=== PATIENT | female | born 1980 | race Caucasian/White ===

== ENCOUNTER 2018-11-23 20:06 | Emergency (ER) | payer OTHER ==
[2018-11-23 20:22] VITALS: BP 142/82; PULSE 86; RESP 18; TEMP 98.7
[2018-11-23] MEDS ORDERED: KETOROLAC 30 MG/ML 1 ML VIAL IM STA (20:48)
[2018-11-23] MEDS ORDERED: LIDOCAINE 5% PATCH TOPICAL STA (20:49)
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
[2018-11-23] MEDS ORDERED: ACET/COD 300 MG/30 MG STARTER PACK 6 TAB BTL PO STA (21:43)
[2018-11-23] MEDS ORDERED: CYCLOBENZAPRINE 10MG STARTER 3 TAB BTL PO STA (21:43)
== END 2018-11-23 21:59 | disposition home or self-care (01) ==
LOC: EC 20:06
DX: M54.5 Low back pain (principal); F17.200 Nicotine dependence, unspecified, uncomplicated; Z86.14 Personal history of Methicillin resistant Staphylococcus aureus infection; Z88.1 Allergy status to other antibiotic agents; V89.2XXA Person injured in unspecified motor-vehicle accident, traffic, initial encounter; Y92.89 Other specified places as the place of occurrence of the external cause
CPT/HCPCS: 72131; 99284; 96372; J1885

== ENCOUNTER 2019-01-31 18:56 | Emergency (ER) | payer BC, OTHER ==
[2019-01-31 19:07] VITALS: RESP 18
[2019-01-31] MEDS ORDERED: SULFAMETHOX-TMP 800-160MG 1 EACH TAB PO STA (19:26)
[2019-01-31] MEDS ORDERED: SULFAMETH-TMP DS STARTER PACK 2 TAB BTL PO STA (19:26)
--- NOTE | 2019-01-31 19:39 | ED ---
General Adult HPI - General Chief complaint: Skin/Abscess/Foreign Body Stated complaint: Finger infection Time Seen by Provider: 01/31/19 19:22 Source: patient, RN notes reviewed, old records reviewed Mode of arrival: ambulatory Limitations: no limitations - History of Present Illness Initial comments: 38 old female patient past history of diabetes. See chief complaint of right thumb paronychia. Patient works as been ongoing for approximately 3 weeks. Patient reports that he did attempt to drain it 2 times last 2 days with a needle. Patient reports that she was unable to express any pus out of it. Patient for she has some pain going to the base of her thumb. Denies any other complaints. Denies asplenia or HIV. Denies any chance of being . Systemic: Pt denies fatigue, fever/chills, rash. Pt denies weakness, night sweats, weight loss. Neuro: Pt denies headache, visual disturbances, syncope or pre-syncope. HEENT: Pt denies ocular discharge or irritation, otalgia, rhinorrhea, pharyngitis or notable lymphadenopathy. Cardiopulmonary: Pt denies chest pain, SOB, heart palpitations, dyspnea on exertion. Abdominal/GI: Pt denies abdominal pain, n/v/d. : Pt denies dysuria, burning w/ urination, frequency/urgency. Denies new onset urinary or bowel incontinence. MSK: Pt denies myalgia, loss of strength or function in extremities. Neuro: Pt denies new onset weakness, paresthesias. - Related Data Previous Rx's Medication Instructions Recorded Cyclobenzaprine [Flexeril] 5 mg PO TID PRN #15 tablet 11/23/18 Sulfamethox-Tmp 800-160Mg [Bactrim 1 tab PO Q12HR 7 Days #14 tab 01/31/19 DS 800-160 mg] Allergies Allergy/AdvReac Type Severity Reaction Status Date / Time azithromycin Allergy Rash/Hives Verified 01/31/19 19:07 Review of Systems ROS Statement: Those systems with pertinent positive or pertinent negative responses have been documented in the HPI. ROS Other: All systems not noted in ROS Statement are negative. Past Medical History Past Medical History: Diabetes Mellitus History of Any Multi-Drug Resistant Organisms: MRSA Date of last positivie culture/infection: 2008 MDRO Source:: face Past Surgical History: Hysterectomy, Tonsillectomy Past Psychological History: Anxiety, Depression Smoking Status: Former smoker Past Alcohol Use History: None Reported Past Drug Use History: Marijuana General Exam - General Exam Comments Initial Comments: Constitutional: NAD, AOX3, Pt has pleasant affect. HEENT: NC/AT, trachea midline, neck supple, no lymphadenopathy. Posterior pharynx non erythematous, without exudates. External ears appear normal, without discharge. Mucous membranes moist. Eyes PERRLA, EOM intact. There is no scleral icterus. No pallor noted. Cardiopulmonary: RRR, no murmurs, rubs or gallops, no JVD noted. Lungs CTAB in anterior and posterior william. No peripheral edema. Abdominal exam: Abdomen soft and non-distended. Abdomen non-tender to palpation in all 4 quadrants. Bowel sounds active in LLQ. No hepatosplenomegaly. No ecchymosis Neuro: CN II-XII grossly intact. No nuchal rigidity. No raccon eyes, no pollock sign, no hemotympanum. No cervical spinal tenderness. MSK: Paronychia right thumb region. No erythema on pad of thumb flexor area. No erythema or cellulitis extending up hand. Paronychia limited to right lateral nail bed. Incision and drainage was performed, displayed a small amount of pus. No posterior calf tenderness bilaterally, homans sign negative bilaterally. Posterior tibialis and radial pulse +2 bilaterally. Sensation intact in upper and lower extremities. Full active ROM in upper and lower extremities, 5/5 stregnth. Limitations: no limitations Course Vital Signs 01/31/19 19:04 Temperature 98.1 F Pulse Rate 78 Respiratory 18 Rate Blood Pressure 113/67 O2 Sat by Pulse 100 Oximetry Procedures - Incision & Drainage Indication: Urticaria Site: hand (R thumb) Size (cm): 1 I&D Cleaning Method: Alcohol Wipe Scalpel Used: #11 I&D Drainage Obtained: Pus, Blood Culture Obtained?: Yes Patient Tolerated Procedure: well Medical Decision Making - Medical Decision Making 38 old feel patient presented to ED chief complaint of paronychia ongoing for approximately 3 weeks. Patient vital signs are stable, afebrile. Physical exams. Paronychia, sed rate was performed. Patient doing quite a relief after drainage. Patient will be discharged with Bactrim and have close outpatient follow-up from a care provider. Return to ER if condition worsens. Disposition Clinical Impression: Paronychia Disposition: HOME SELF-CARE Condition: Stable Instructions (If sedation given, give patient instructions): Paronychia (ED), Warm Compress or Soak (ED) Additional Instructions: Follow-up with primary care provider tomorrow, return to ER physician worsens in any way. Do warm soaks as directed. Take antibiotics as directed. Prescriptions: Sulfamethox-Tmp 800-160Mg [Bactrim DS 800-160 mg] 1 tab PO Q12HR 7 Days #14 tab Is patient prescribed a controlled substance at d/c from ED?: No Referrals: Ancelmo Grier MD [Primary Care Provider] - 1-2 days
--- NOTE | 2019-01-31 19:56 | XR ---
EXAMINATION TYPE: XR hand complete RT DATE OF EXAM: 01/31/2019 COMPARISON: NONE HISTORY: Thumb pain TECHNIQUE: 3 views FINDINGS: Metacarpals are intact. I see no fracture nor dislocation. Stomach is intact. IMPRESSION: Negative right hand exam. No sign of osteomyelitis.
[2019-01-31 20:41] VITALS: BP 115/70; PULSE 75; TEMP 98
== END 2019-01-31 20:49 | disposition home or self-care (01) ==
LOC: EC 18:56
DX: L03.011 Cellulitis of right finger (principal); Z87.891 Personal history of nicotine dependence; Z88.1 Allergy status to other antibiotic agents; Z86.14 Personal history of Methicillin resistant Staphylococcus aureus infection
CPT/HCPCS: 10060; 87070; 87205; 99284

== ENCOUNTER → 2019-02-02 | Outpatient (CLI) | payer OTHER, BC ==
--- NOTE | 2019-02-02 13:55 | MR ---
EXAMINATION TYPE: MR oliver wo con DATE OF EXAM: 02/02/2019 1:49 PM COMPARISON: NONE HISTORY: Cervicalgia / Low back pain Multiplanar MultiSpin echo imaging of the cervical spine was performed. Comparison: none C2-C3: No evidence for degenerative disc disease. No disc bulge/herniation or protrusion. No Canal stenosis. Foramina are patent bilaterally. C3-C4: No evidence for degenerative disc disease. No disc bulge/herniation or protrusion. No Canal stenosis. Foramina are patent bilaterally. C4-C5: Mild disc desiccation noted. Mild posterior disc bulge. Mild effacement ventral thecal sac. No evidence of disc herniation or protrusion. No central stenosis. Foramina are patent. C5-C6: Minimal disc desiccation noted. Minimal posterior disc bulge. Mild effacement ventral thecal s ac. No evidence of disc herniation or protrusion. No central stenosis. Foramina are patent. C6-C7: No evidence for degenerative disc disease. No disc bulge/herniation or protrusion. No Canal stenosis. Foramina are patent bilaterally. C7-T1: No evidence for degenerative disc disease. No disc bulge/herniation or protrusion. No Canal stenosis. Foramina are patent bilaterally. Cervical segments are intact. There is normal alignment. Cervical spinal cord is of normal signal. Craniovertebral junction relationships are within normal limits. IMPRESSION: 1. Disc desiccation is noted. 2. Disc bulging greatest at C4-5. EXAMINATION TYPE: MR oliver wo con DATE OF EXAM: 02/02/2019 1:49 PM COMPARISON: NONE HISTORY: Cervicalgia / Low back pain Multiplanar, MultiSpin echo imaging of the lumbar spine was performed. L1-L2: Normal disc appearance without desiccation. No herniation, protrusion or disc bulging. No ca nal stenosis is present. Foramina are patent bilaterally. L2-L3: Normal disc appearance without desiccation. No herniation, protrusion or disc bulging. No ca nal stenosis is present. Foramina are patent bilaterally. L3-L4: Normal disc appearance without desiccation. No herniation, protrusion or disc bulging. No ca nal stenosis is present. Foramina are patent bilaterally. L4-L5: Normal disc appearance without desiccation. No herniation, protrusion or disc bulging. No ca nal stenosis is present. Foramina are patent bilaterally. L5-S1: Moderate disc desiccation noted. Posterior disc bulge with mild effacement of ventral thecal s ac. No evidence for central stenosis or foraminal encroachment. Lumbar segments are intact. No paraspinal masses are identified. Conus medullaris has a normal appe arance. IMPRESSION: 1. Disc desiccation and disc bulging at L5-S1.
== END | disposition home or self-care (01) ==
LOC: RADMRIMAIN 12:49
PROVIDERS: ATTEND Family Medicine
DX: M50.221 Other cervical disc displacement at C4-C5 level (principal); M51.27 Other intervertebral disc displacement, lumbosacral region
CPT/HCPCS: 72141; 72148

== ENCOUNTER 2019-03-20 17:24 | Emergency (ER) | payer BC ==
[2019-03-20 17:31] VITALS: BP 125/84; PULSE 101; RESP 20; TEMP 98.2
[2019-03-20] MEDS ORDERED: DIPH,PERTUS(ACELL)TETVAC-LF 0.5 ML VIAL IM ONE (17:40)
[2019-03-20] MEDS ORDERED: LIDOCAINE 1% INJ 10MG/ML (20 ML MDV) SQ ONE (17:41)
[2019-03-20] MEDS ORDERED: AMOXIC-POT CLAV 875-125MG 1 EACH TAB PO STA (17:41)
--- NOTE | 2019-03-20 17:45 | ED ---
General Adult HPI - General Chief complaint: Skin/Abscess/Foreign Body Stated complaint: Cat bite Time Seen by Provider: 03/20/19 17:34 Source: patient, RN notes reviewed, old records reviewed Mode of arrival: ambulatory Limitations: no limitations - History of Present Illness Initial comments: 38-year-old female presenting with Bites to the right index finger. Bite occurred 3 days prior to arrival. She's had erythema and pain which has worsened over the past 24 hours. No fever or chills. No pain in the right hand or proximal finger. This is located in the distal phalanx only. Patient has multiple cats. She is uncertain of her tetanus status. Patient is a diabetic on insulin. - Related Data Previous Rx's Medication Instructions Recorded Cyclobenzaprine [Flexeril] 5 mg PO TID PRN #15 tablet 11/23/18 Sulfamethox-Tmp 800-160Mg [Bactrim 1 tab PO Q12HR 7 Days #14 tab 01/31/19 DS 800-160 mg] Amoxic-Pot Clav 875-125Mg 1 tab PO Q12HR #20 tablet 03/20/19 [Augmentin 875-125] Allergies Allergy/AdvReac Type Severity Reaction Status Date / Time azithromycin Allergy Rash/Hives Verified 03/20/19 17:31 Review of Systems ROS Statement: Those systems with pertinent positive or pertinent negative responses have been documented in the HPI. ROS Other: All systems not noted in ROS Statement are negative. Past Medical History Past Medical History: Diabetes Mellitus History of Any Multi-Drug Resistant Organisms: MRSA Date of last positivie culture/infection: 2008 MDRO Source:: face Past Surgical History: Hysterectomy, Tonsillectomy Past Psychological History: Anxiety, Depression Smoking Status: Former smoker Past Alcohol Use History: None Reported Past Drug Use History: Marijuana General Exam Limitations: no limitations General appearance: alert, in no apparent distress Head exam: Present: atraumatic, normocephalic Eye exam: Present: normal appearance, PERRL ENT exam: Present: normal exam Neck exam: Present: normal inspection. Absent: tenderness, meningismus Respiratory exam: Present: normal lung sounds bilaterally. Absent: respiratory distress, wheezes Cardiovascular Exam: Present: regular rate, normal rhythm GI/Abdominal exam: Present: soft. Absent: distended, tenderness, guarding Extremities exam: Present: full ROM, other (Right hand, there is superficial l aceration on the palmar surface of the distal phalanx right index finger with some mild purulent drainage, this is freely draining. Mild erythema of the palmar surface. No tracking erythema, normal range of motion) Neurological exam: Present: alert, oriented X3, CN II-XII intact. Absent: motor sensory deficit Psychiatric exam: Present: normal affect, normal mood Skin exam: Present: warm Course Vital Signs 03/20/19 17:28 Temperature 98.2 F Pulse Rate 101 H Respiratory 20 Rate Blood Pressure 125/84 O2 Sat by Pulse 97 Oximetry Procedures - Nerve Block Consent Obtained: verbal consent Local Anesthetic Used: Lidocaine 1% Side: right Nerve Blocks: digital Procedure Successful: Yes Complications: none Patient Tolerated Procedure: well Additional Comments: Digital block of the right index finger. Medical Decision Making - Medical Decision Making 38 yo female with freely draining Bite infection of the right index finger distal phalanx. No signs of tenosynovitis or more proximal infection in the hand. Patient is afebrile otherwise well-appearing. X-rays performed, negative for foreign body. Tetanus status is updated. She is given a finger block for symptom control. She is given initial dose of Augmentin emergency department and prescribed Augmentin as an outpatient. She will return with any worsening or changing symptoms. Patient is a diabetic she will wash this infection very closely and is given strict return parameters. Disposition Clinical Impression: Cellulitis, Cat bite of finger Disposition: HOME SELF-CARE Condition: Good Instructions (If sedation given, give patient instructions): Animal Bite (ED) Prescriptions: Amoxic-Pot Clav 875-125Mg [Augmentin 875-125] 1 tab PO Q12HR #20 tablet Is patient prescribed a controlled substance at d/c from ED?: No Referrals: Ancelmo Grier MD [Primary Care Provider] - 1-2 days Time of Disposition: 17:45
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
== END 2019-03-20 18:27 | disposition home or self-care (01) ==
LOC: EC 17:24
DX: S61.250A Open bite of right index finger without damage to nail, initial encounter (principal); Z23 Encounter for immunization; E11.9 Type 2 diabetes mellitus without complications; Z79.4 Long term (current) use of insulin; Z88.1 Allergy status to other antibiotic agents; Z87.891 Personal history of nicotine dependence; W55.01XA Bitten by cat, initial encounter
CPT/HCPCS: 73140; 90715; 99284; 90471; 64450; J2001

== ENCOUNTER → 2019-04-04 | Outpatient (CLI) | payer BC ==
[2019-04-04 08:13] LABS: African American GFR (CKD) >90 (>60 ml/min/1.73 sqM); Blood Urea Nitrogen 17 mg/dL (7-17); Non-African American GFR(CKD) >90 (>60 ml/min/1.73 sqM)
--- NOTE | 2019-04-04 09:14 | CT ---
EXAMINATION TYPE: CT abdomen w con DATE OF EXAM: 04/04/2019 COMPARISON: None. HISTORY: Hepatomegaly CT DLP: 267.7 mGycm Automated exposure control for dose reduction was used. TECHNIQUE: Helical acquisition of images was performed from the lung bases through the top of iliac crest to include entire abdomen. CONTRAST: Performed with Oral Contrast and with IV Contrast, patient injected with 100 mL of Isovue 300. FINDINGS: LUNG BASES: No significant abnormality is appreciated. LIVER/GB: Liver size is felt upper limits of normal with slightly prominent right hepatic lobe. There is 9 mm hypodense lesion right hepatic dome axial image 11 that is too small to further characterize . There is slightly larger central 1.2 cm hypodense lesion image 13 appear to show some heterogeneous enhancement, suspect hemangioma but not definitively characterized on this study. PANCREAS: No significant abnormality is seen. SPLEEN: No significant abnormality is seen. ADRENALS: No significant abnormality is seen. KIDNEYS: No significant abnormality is seen. BOWEL: Oral contrast does not reach colonic level. No suspicious small or large bowel dilatation. LYMPH NODES: No significant abnormality is seen. OSSEOUS STRUCTURES: Small disc herniations L3-L4 through the L5-S1 levels. OTHER: None. IMPRESSION: Liver size is thought upper limits of normal. There are 2 small nonspecific lesions noted , largest 1.2 cm lesion favors benign hemangioma.
== END | disposition home or self-care (01) ==
LOC: RADCTMAIN 07:16
PROVIDERS: ATTEND Family Medicine
DX: K76.89 Other specified diseases of liver (principal)
CPT/HCPCS: 82565; 84520; 74160; 36415; Q9967

== ENCOUNTER 2019-10-20 19:58 | Inpatient (IN) | payer BC ==
[2019-10-20] MEDS ORDERED: ONDANSETRON 4 MG/2 ML VIAL IVP STA (20:35)
[2019-10-20] MEDS ORDERED: HYDROmorphone 1 MG/ML 1 ML SYRINGE IVP STA (20:35)
[2019-10-20] MEDS ORDERED: SODIUM CHLORIDE 0.9% 1,000 ML IV ONE (20:35)
[2019-10-20] MEDS ORDERED: KETOROLAC 30 MG/ML 1 ML VIAL IVP STA (20:35)
[2019-10-20 21:02] LABS: Basophils % (A) 0 %; Eosinophils # (A) 0.2 k/uL (0-0.7); Eosinophils % (A) 1 %; HCT 41.7 % (34.0-46.0); HGB 13.4 gm/dL (11.4-16.0); Lymphocytes # (A) 1.6 k/uL (1.0-4.8); Lymphocytes % (A) 13 %; MCH 32.1 pg (25.0-35.0); MCHC 32.1 g/dL (31.0-37.0); MCV 99.9 fL (80.0-100.0); Mean Platelet Volume 7.9; Monocytes # (A) 0.6 k/uL (0-1.0); Monocytes % (A) 5 %; Neutrophils # (A) 10.1 k/uL (1.3-7.7); Neutrophils % (A) 80 %; Platelet Count 289 k/uL (150-450); RBC 4.17 m/uL (3.80-5.40); RDW 12.2 % (11.5-15.5); WBC 12.6 k/uL (3.8-10.6)
[2019-10-20 21:15] LABS: AST 24 U/L (14-36); African American GFR (CKD) >90 (>60 ml/min/1.73 sqM); Albumin 4.6 g/dL (3.5-5.0); Alkaline Phosphatase 76 U/L (38-126); Anion Gap 13 mmol/L; Blood Urea Nitrogen 10 mg/dL (7-17); Calcium 9.8 mg/dL (8.4-10.2); Carbon Dioxide 26 mmol/L (22-30); Chloride 94 mmol/L (98-107); Glucose 326 mg/dL (74-99); Non-African American GFR(CKD) >90 (>60 ml/min/1.73 sqM); Potassium 3.9 mmol/L (3.5-5.1); Sodium 133 mmol/L (137-145); Total Bilirubin 0.7 mg/dL (0.2-1.3); Total Protein 7.4 g/dL (6.3-8.2)
[2019-10-20 21:22] LABS: ALT 23 U/L (4-34)
--- NOTE | 2019-10-20 21:26 | ED ---
Skin/Abscess/FB HPI - General Chief complaint: Skin/Abscess/Foreign Body Stated complaint: Abdominal Abscess/pain Time Seen by Provider: 10/20/19 20:27 Source: patient Mode of arrival: ambulatory Limitations: no limitations - History of Present Illness Initial comments: 39-year-old female patient presents to the emergency department today for evaluation of abscess to the lower abdomen. Patient states 2 days ago started as a small area she believed to be an ingrown hair. States that it increased to a golf ball size this morning and then by this evening it spread across her lower abdomen. States she has been having extreme discomfort to the area. States it is very tender to touch. She has felt feverish and chilled. Denies any nausea or vomiting. She does have type 1 diabetes. Has taken ibuprofen around 1:00 this afternoon. Denies history of MRSA or other abscesses. Patient denies any recent rash, cough, shortness of breath, chest pain, diarrhea, constipation, back pain, numbness, tingling, dizziness, weakness, hematuria, dysuria, urinary urgency, urinary frequency, headache, visual changes, or any other complaints. - Related Data Home Medications Medication Instructions Recorded Confirmed DULoxetine HCL [Cymbalta] 60 mg PO DAILY 10/20/19 10/20/19 Gabapentin 600 mg PO TID 10/20/19 10/20/19 HYDROcodone/APAP 5-325MG [Soldier 1 tab PO TID 10/20/19 10/20/19 5-325] INSULIN ASPART (NovoLOG) [NovoLOG See Protocol SQ ACHS 10/20/19 10/20/19 (formulary)] Naproxen 500 mg PO TID 10/20/19 10/20/19 Zanaflex(Unknown Dose) 1 - 2 tab PO HS 10/20/19 10/20/19 Allergies Allergy/AdvReac Type Severity Reaction Status Date / Time azithromycin Allergy Rash/Hives Verified 10/20/19 22:19 Review of Systems ROS Statement: Those systems with pertinent positive or pertinent negative responses have been documented in the HPI. ROS Other: All systems not noted in ROS Statement are negative. Past Medical History Past Medical History: Diabetes Mellitus History of Any Multi-Drug Resistant Organisms: MRSA Date of last positivie culture/infection: 2008 MDRO Source:: face Past Surgical History: Hysterectomy, Tonsillectomy Past Psychological History: Anxiety, Depression Smoking Status: Never smoker Past Alcohol Use History: None Reported Past Drug Use History: Marijuana General Exam Limitations: no limitations General appearance: alert, in no apparent distress, other (this is a well-d eveloped, well-nourished adult female patient in mild distress related to pain. ) Eye exam: Present: normal appearance, PERRL, EOMI. Absent: scleral icterus, conjunctival injection, periorbital swelling ENT exam: Present: normal exam, normal oropharynx, mucous membranes moist Respiratory exam: Present: normal lung sounds bilaterally. Absent: respiratory distress, wheezes, rales, rhonchi, stridor Cardiovascular Exam: Present: regular rate, normal rhythm, normal heart sounds. Absent: systolic murmur, diastolic murmur, rubs, gallop, clicks GI/Abdominal exam: Present: soft, normal bowel sounds, other (There is lower abdominal abscess and cellulitis. There is a large indurated area at least 12cm x 7cm. Surrounding erythema and swelling. Exquisite tenderness.). Absent: distended, tenderness, guarding, rebound, rigid Neurological exam: Present: alert, oriented X3, CN II-XII intact Psychiatric exam: Present: normal affect, normal mood Skin exam: Present: warm, dry, intact, normal color. Absent: rash Course Vital Signs 10/20/19 10/20/19 20:19 22:16 Temperature 99.4 F 97.9 F Pulse Rate 142 H 91 Respiratory 20 16 Rate Blood Pressure 102/71 98/61 O2 Sat by Pulse 98 97 Oximetry Procedures - Sepsis Sepsis Focused Exam #1 Time Sepsis Criteria Met: 21:45 Sepsis Focused Exam Date: 10/20/19 Sepsis Focused Exam Time: 22:01 Sepsis Focused Exam Complete: Yes Vital Signs & RN Notes Reviewed: Yes Capillary Refill: < 2 Seconds: Fingers, Toes Peripheral Pulses: Normal: Radial (R), Radial (L), Posterior Tibialis (R), Posterior Tibialis (L), Dorsalis Pedis (R), Dorsalis Pedis (L) Skin Color: Normal for Patient Respiratory Exam: normal lung sounds Cardiovascular Exam: tachycardia Medical Decision Making - Medical Decision Making 39-year-old female patient presents to the emergency department today for evaluation of abscess and infection to the lower abdomen. Physical examination did reveal and duration and cellulitis over the lower abdomen. Area was exquisi tely tender to touch. Patient did have mildly elevated temperature 99.5F. Heart rate was initially elevated at 147. Labs reviewed and did reveal elevated white blood cell count at 12, lactic acid 5.2, blood sugar elevated in the 320s. CT abdomen and pelvis was obtained and showed no acute abnormalities. Patient be started on IV antibiotics and admitted to the hospital for sepsis and abdominal wall cellulitis. - Lab Data Result diagrams: 10/20/19 20:29 10/20/19 20:29 Lab Results 10/20/19 10/20/19 10/20/19 Range/Units 20:29 20:29 20:29 WBC 12.6 H (3.8-10.6) k/uL RBC 4.17 (3.80-5.40) m/uL Hgb 13.4 (11.4-16.0) gm/dL Hct 41.7 (34.0-46.0) % MCV 99.9 (80.0-100.0) fL MCH 32.1 (25.0-35.0) pg MCHC 32.1 (31.0-37.0) g/dL RDW 12.2 (11.5-15.5) % Plt Count 289 (150-450) k/uL Neutrophils % 80 % Lymphocytes % 13 % Monocytes % 5 % Eosinophils % 1 % Basophils % 0 % Neutrophils # 10.1 H (1.3-7.7) k/uL Lymphocytes # 1.6 (1.0-4.8) k/uL Monocytes # 0.6 (0-1.0) k/uL Eosinophils # 0.2 (0-0.7) k/uL Basophils # 0.0 (0-0.2) k/uL Sodium 133 L (137-145) mmol/L Potassium 3.9 (3.5-5.1) mmol/L Chloride 94 L (98-107) mmol/L Carbon Dioxide 26 (22-30) mmol/L Anion Gap 13 mmol/L BUN 10 (7-17) mg/dL Creatinine 0.50 L (0.52-1.04) mg/dL Est GFR (CKD-EPI)AfAm >90 (>60 ml/min/1.73 sqM) Est GFR (CKD-EPI)NonAf >90 (>60 ml/min/1.73 sqM) Glucose 326 H (74-99) mg/dL Plasma Lactic Acid Maurizio 5.2 H* (0.7-2.0) mmol/L Calcium 9.8 (8.4-10.2) mg/dL Total Bilirubin 0.7 (0.2-1.3) mg/dL AST 24 (14-36) U/L ALT 23 (4-34) U/L Alkaline Phosphatase 76 (38-126) U/L C-Reactive Protein (<10.0) mg/L Total Protein 7.4 (6.3-8.2) g/dL Albumin 4.6 (3.5-5.0) g/dL 10/20/19 Range/Units Unknown WBC (3.8-10.6) k/uL RBC (3.80-5.40) m/uL Hgb (11.4-16.0) gm/dL Hct (34.0-46.0) % MCV (80.0-100.0) fL MCH (25.0-35.0) pg MCHC (31.0-37.0) g/dL RDW (11.5-15.5) % Plt Count (150-450) k/uL Neutrophils % % Lymphocytes % % Monocytes % % Eosinophils % % Basophils % % Neutrophils # (1.3-7.7) k/uL Lymphocytes # (1.0-4.8) k/uL Monocytes # (0-1.0) k/uL Eosinophils # (0-0.7) k/uL Basophils # (0-0.2) k/uL Sodium (137-145) mmol/L Potassium (3.5-5.1) mmol/L Chloride (98-107) mmol/L Carbon Dioxide (22-30) mmol/L Anion Gap mmol/L BUN (7-17) mg/dL Creatinine (0.52-1.04) mg/dL Est GFR (CKD-EPI)AfAm (>60 ml/min/1.73 sqM) Est GFR (CKD-EPI)NonAf (>60 ml/min/1.73 sqM) Glucose (74-99) mg/dL Plasma Lactic Acid Maurizio (0.7-2.0) mmol/L Calcium (8.4-10.2) mg/dL Total Bilirubin (0.2-1.3) mg/dL AST (14-36) U/L ALT (4-34) U/L Alkaline Phosphatase (38-126) U/L C-Reactive Protein 31.6 H (<10.0) mg/L Total Protein (6.3-8.2) g/dL Albumin (3.5-5.0) g/dL - Radiology Data Radiology results: report reviewed, image reviewed CT abdomen and pelvis with contrast was obtained. Report was reviewed in its entirety. Impression by Dr. Cao shows no sign of acute abdomen and pelvis. Appendix vaccine. Disposition Clinical Impression: Abdominal abscess, Cellulitis, Sepsis Disposition: ADMITTED IP TO THIS HOSP Condition: Serious Referrals: Ancelmo Grier MD [Primary Care Provider] - 1-2 days Decision to Admit Reason: Admit from EC Decision Date: 10/20/19 Decision Time: 22:37
[2019-10-20] MEDS ORDERED: VANCOMYCIN IV PER PHARMACY 1 EACH MISC MISCELLANE PRN (21:57)
[2019-10-20] MEDS ORDERED: VANCOMYCIN 1,250 MG in SODIUM CHLORIDE 0.9% 250 ML IVPB STA (21:58)
[2019-10-20] MEDS ORDERED: SODIUM CHLORIDE 0.9% 500 ML 500 ML IV ONE (21:58)
[2019-10-20] MEDS ORDERED: PIPERACILLIN-TAZOBACTAM 3.375 GM in SODIUM CHLORIDE 0.9% 100 ML IVPB STA (22:00)
[2019-10-20] MEDS ORDERED: INSULIN REGULAR 100 UNIT/ML VIAL IV STA (22:02)
--- NOTE | 2019-10-20 22:08 | CT ---
EXAMINATION TYPE: CT abdomen pelvis w con DATE OF EXAM: 10/20/2019 COMPARISON: 04/04/2019 HISTORY: Redness and swelling to lower abdomen CT DLP: 579.3 mGycm Automated exposure control for dose reduction was used. CONTRAST: Performed with IV Contrast, patient injected with 100 mL of Isovue 300. Lung bases are clear. There is no pleural effusion. Heart size is normal. There is no pericardial eff usion. Liver spleen stomach pancreas gallbladder appear normal. Bile ducts are not dilated. There is no adrenal mass. Kidneys show satisfactory contrast opacification. There is no hydronephrosi s. There is no retroperitoneal adenopathy. Bladder distends smoothly. There is no inguinal hernia. Th ere are a few bilateral inguinal lymph nodes. There is no evidence of a pelvic mass. There is small a mount of free fluid in the cul-de-sac. Appendix is not definitely seen. There is no sign of thickened appendix. Lumbar vertebra have normal alignment. Disc spaces are normal. Posterior elements are intact. Bony pe lvis is intact. There is 1 cm cyst in the superior liver. There is 1.5 cm hypodense area medial super ior right lobe of the liver. Liver lesions unchanged. There is hysterectomy. Delayed images show norm al renal excretion. There is subcutaneous density over the lower anterior abdomen that could be incision site. There is no mesenteric edema. There is no ascites or free air. There is no bowel obstruction. IMPRESSION: No sign of acute abdomen and pelvis. Appendix not seen.
[2019-10-20] MEDS ORDERED: NALOXONE 0.4 MG/ML 1 ML VIAL IV PRN (22:35)
[2019-10-20] MEDS: HYDROmorphone 1 MG/ML 1 ML SYRINGE IVP PRN (23:38)
[2019-10-20] MEDS: SODIUM CHLORIDE 0.9% 1,000 ML IV SCH (23:41)
[2019-10-21] MEDS: HYDROmorphone 1 MG/ML 1 ML SYRINGE IVP PRN ×7 (01:57→23:53)
[2019-10-21] MEDS: SODIUM CHLORIDE 0.9% 1,000 ML IV SCH ×3 (06:02→21:48)
[2019-10-21] MEDS: HYDROcodone/APAP 5-325MG 1 EACH TAB PO SCH ×4 (06:16→21:45)
[2019-10-21 06:33] LABS: Basophils % (A) 0 %; Eosinophils # (A) 0.1 k/uL (0-0.7); Eosinophils % (A) 1 %; HCT 33.5 % (34.0-46.0); HGB 10.7 gm/dL (11.4-16.0); Lymphocytes # (A) 0.9 k/uL (1.0-4.8); Lymphocytes % (A) 11 %; MCH 32.5 pg (25.0-35.0); MCHC 31.8 g/dL (31.0-37.0); MCV 102.1 fL (80.0-100.0); Macrocytosis Slight; Mean Platelet Volume 7.7; Monocytes # (A) 0.6 k/uL (0-1.0); Monocytes % (A) 6 %; Neutrophils % (A) 81 %; Platelet Count 234 k/uL (150-450); RBC 3.28 m/uL (3.80-5.40); RDW 12.4 % (11.5-15.5); WBC 8.7 k/uL (3.8-10.6)
[2019-10-21 06:39] LABS: African American GFR (CKD) >90 (>60 ml/min/1.73 sqM); Anion Gap 6 mmol/L; Blood Urea Nitrogen 9 mg/dL (7-17); Calcium 7.9 mg/dL (8.4-10.2); Carbon Dioxide 27 mmol/L (22-30); Chloride 102 mmol/L (98-107); Glucose 248 mg/dL (74-99); Non-African American GFR(CKD) >90 (>60 ml/min/1.73 sqM); Potassium 4.2 mmol/L (3.5-5.1); Sodium 135 mmol/L (137-145)
[2019-10-21 06:43] LABS: Glucose,Whole Blood 269 mg/dL (75-99)
[2019-10-21] MEDS: PIPERACILLIN-TAZOBACTAM 3.375 GM in SODIUM CHLORIDE 0.9% 100 ML IVPB SCH ×2 (07:13→14:33)
[2019-10-21] MEDS: DULoxetine HCL 60 MG CAPSULE.DR PO SCH (09:02)
[2019-10-21] MEDS: GABAPENTIN 300 MG CAP PO SCH ×3 (09:02→21:46)
[2019-10-21] MEDS: NAPROXEN 250 MG TAB PO SCH ×2 (09:03→20:45)
[2019-10-21] MEDS: VANCOMYCIN 1,000 MG in SODIUM CHLORIDE 0.9% 250 ML IVPB SCH ×3 (09:10→23:51)
[2019-10-21 11:34] LABS: Glucose,Whole Blood 274 mg/dL (75-99)
[2019-10-21] MEDS: INSULIN ASPART (NovoLOG) 100 UNIT/ML VIAL SQ SCH ×3 (12:53→20:46)
[2019-10-21] MEDS: ENOXAPARIN 40 MG/0.4 ML SYRINGE SQ SCH (12:54)
[2019-10-21] MEDS: ACETAMINOPHEN TAB 325 MG TAB PO PRN (13:01)
[2019-10-21] MEDS: INSULIN DETEMIR (LEVEMIR) 100 UNIT/ML SYR SQ SCH (13:45)
[2019-10-21 16:33] LABS: Glucose,Whole Blood 136 mg/dL (75-99)
--- NOTE | 2019-10-21 16:36 | P.HPIM ---
History of Present Illness H&P Date: 10/21/19 Chief Complaint: Abdominal wall cellulitis History of presenting complaint: This is a 39-year-old patient of Dr. Analia Grier. Patient is a type I diabetic diagnosed one year ago. Has a insulin pump. It was recorded. Patient has been using short-acting insulin for some time. Only Humalog. No long- acting insulin. Patient does use a razor to shave around her pubic hair. Tuesday morning she noticed a pimple just above the pubic line and an epidural local compress on it.. It progressed to spread in the lower abdomen become more painful. It no fevers. No reported chills. Normally patient Accu-Cheks run in the 250s. She was started in IV vancomycin and Zosyn in the ER. And on IV Dilaudid. Patient is asking for IV Dilaudid pain medicine to be increased. Patient is on Dewitt and Neurontin for herniated disc of the spine. Review of systems: GEN.: Tired EYES: None HEENT: None NECK: None RESPIRATORY: None CARDIOVASCULAR: None GASTROINTESTINAL: None GENITOURINARY: None MUSCULOSKELETAL: Chronic back pain LYMPHATICS: None HEMATOLOGICAL: None PSYCHIATRY: Very anxious] NEUROLOGICAL: None Past medical history to include: Diabetes mellitus type 1, MRSA infection in 2009, herniated disc in the spine, anxiety depression Social history: Patient was smoking cigarettes in the past now does vaping, is a property loss insurance claim adjuster. No alcohol. Has a son at home. Family history: Reviewed, noncontributory to presentation Physical examination: VITAL SIGNS: 98.3, 88, 17, 116/78, 95% room air GENERAL: BMI 22.1, laying in bed, restless. EYES: Pupils equal. Conjunctiva normal. HEENT: External appearance of nose and ears normal, oral cavity grossly normal. NECK: JVD not raised; masses not palpable. HEART: First and second heart sounds are normal; no edema. LUNGS: Respiratory rate normal; clear to auscultation. ABDOMEN: Soft, nontender, liver spleen not palpable, no masses palpable lower abdominal wall above the pubic hair line with surrounding area of induration. It appears to be one area folliculitis PSYCH: Alert and oriented x3; mood and affect very anxious and agitatedl. NEUROLOGICAL: Cranial nerves grossly intact; no facial asymmetry, power and sensation grossly intact. LYMPHATICS: No lymph nodes palpable in the axilla and neck INVESTIGATIONS, reviewed in the clinical context: White count 12.6 hemoglobin 13.4 repeat 10.7 potassium 3.9 creatinine 0.5 lactic acid 5.2 CRP 31.6 Accu-Cheks 269, 274 Assessment: -Acute lower abdominal wall cellulitis precipitated by acute folliculitis likely from using a razor -Diabetes mellitus type 1 on insulin pump currently using only NovoLog due to the pumping recalled, uncontrolled with hyperglycemia -Macrocytic anemia cause unknown -Lactic acidosis possible sepsis from cellulitis -Chronic low back pain from herniated disc -Anxiety depression otherwise specified Plan: Patient Dilaudid be increased 1.5 mg every 3 hours as discussed with the patient. Patient to begin vancomycin and Zosyn. Blood cultures are pending. Accu-Cheks to follow. 16 units of daily living that is being added. ID is consulted. Home medications to continue. Hold of Dewitt. Past Medical History Past Medical History: Diabetes Mellitus History of Any Multi-Drug Resistant Organisms: MRSA Date of last positivie culture/infection: 2008 MDRO Source:: face Past Surgical History: Hysterectomy, Tonsillectomy Past Anesthesia/Blood Transfusion Reactions: No Reported Reaction Past Psychological History: Anxiety, Depression Smoking Status: Never smoker Past Alcohol Use History: None Reported Past Drug Use History: Marijuana Medications and Allergies Home Medications Medication Instructions Recorded Confirmed Type DULoxetine HCL [Cymbalta] 60 mg PO DAILY 10/20/19 10/20/19 History Gabapentin 600 mg PO TID 10/20/19 10/20/19 History HYDROcodone/APAP 5-325MG [Dewitt 1 tab PO TID 10/20/19 10/20/19 History 5-325] INSULIN ASPART (NovoLOG) [NovoLOG See Protocol SQ ACHS 10/20/19 10/20/19 History (formulary)] Naproxen 500 mg PO TID 10/20/19 10/20/19 History Zanaflex(Unknown Dose) 1 - 2 tab PO HS 10/20/19 10/20/19 History Allergies Allergy/AdvReac Type Severity Reaction Status Date / Time azithromycin Allergy Rash/Hives Verified 10/20/19 22:19 Physical Exam Vitals: Vital Signs Temp Pulse Pulse Resp BP BP Pulse Ox 10/21/19 07:00 98.3 F 88 17 116/78 95 10/21/19 01:20 87 113/70 10/21/19 00:53 98.3 F 89 16 93/58 95 10/20/19 23:43 93 18 96/63 96 10/20/19 22:16 97.9 F 91 16 98/61 97 10/20/19 20:19 99.4 F 142 H 20 102/71 98 Intake and Output 10/20/19 10/21/19 10/21/19 22:59 06:59 14:59 Other: # Voids 3 Weight 53.07 kg 53.07 kg Results CBC & Chem 7: 10/21/19 06:02 10/21/19 06:02 Labs: Abnormal Lab Results - Last 24 Hours (Table) 10/20/19 10/20/19 10/20/19 Range/Units 20:29 20:29 20:29 WBC 12.6 H (3.8-10.6) k/uL RBC (3.80-5.40) m/uL Hgb (11.4-16.0) gm/dL Hct (34.0-46.0) % MCV (80.0-100.0) fL Neutrophils # 10.1 H (1.3-7.7) k/uL Lymphocytes # (1.0-4.8) k/uL Sodium 133 L (137-145) mmol/L Chloride 94 L (98-107) mmol/L Creatinine 0.50 L (0.52-1.04) mg/dL Glucose 326 H (74-99) mg/dL POC Glucose (mg/dL) (75-99) mg/dL Plasma Lactic Acid Maurizio 5.2 H* (0.7-2.0) mmol/L Calcium (8.4-10.2) mg/dL C-Reactive Protein (<10.0) mg/L 10/20/19 10/21/19 10/21/19 Range/Units Unknown 06:02 06:02 WBC (3.8-10.6) k/uL RBC 3.28 L (3.80-5.40) m/uL Hgb 10.7 L (11.4-16.0) gm/dL Hct 33.5 L (34.0-46.0) % MCV 102.1 H (80.0-100.0) fL Neutrophils # (1.3-7.7) k/uL Lymphocytes # 0.9 L (1.0-4.8) k/uL Sodium 135 L (137-145) mmol/L Chloride (98-107) mmol/L Creatinine 0.46 L (0.52-1.04) mg/dL Glucose 248 H (74-99) mg/dL POC Glucose (mg/dL) (75-99) mg/dL Plasma Lactic Acid Maurizio (0.7-2.0) mmol/L Calcium 7.9 L (8.4-10.2) mg/dL C-Reactive Protein 31.6 H (<10.0) mg/L 10/21/19 Range/Units 06:42 WBC (3.8-10.6) k/uL RBC (3.80-5.40) m/uL Hgb (11.4-16.0) gm/dL Hct (34.0-46.0) % MCV (80.0-100.0) fL Neutrophils # (1.3-7.7) k/uL Lymphocytes # (1.0-4.8) k/uL Sodium (137-145) mmol/L Chloride (98-107) mmol/L Creatinine (0.52-1.04) mg/dL Glucose (74-99) mg/dL POC Glucose (mg/dL) 269 H (75-99) mg/dL Plasma Lactic Acid Maurizio (0.7-2.0) mmol/L Calcium (8.4-10.2) mg/dL C-Reactive Protein (<10.0) mg/L Thrombosis Risk Factor Assmnt - Choose All That Apply Any of the Below Risk Factors Present?: No Other Risk Factors: No Other congenital or acquired thrombophilia - If yes, enter type in comment: No Thrombosis Risk Factor Assessment Level: Very Low Risk
[2019-10-21 20:26] LABS: Glucose,Whole Blood 181 mg/dL (75-99)
[2019-10-21] MEDS: ONDANSETRON 4 MG/2 ML VIAL IVP PRN (21:14)
--- NOTE | 2019-10-21 23:30 | P.CONS ---
History of Present Illness - Reason for Consult Consult date: 10/21/19 Abdominal wall abscess Requesting physician: Tony Farias - Chief Complaint Abdominal wall pain swelling or redness x 2 days - History of Present Illness Patient is 39-year-old female presenting to the ER with chief complaints of painful swelling and redness of the lower abdominal wall apparently started about 2 days ago with a small pimple that has subsequently increased in size very quickly with the next 48 hour she's describing is swollen and red and painful pain is throbbing almost 10 out of 10 in severity and worse with touching patient denies having any drainage from the area with worsening pain swelling redness she presented to the hospital on the Route of the elevated have low-grade fever of 99.9F patient did have CT of abdominal pelvis that did not show any intra-abdominal pathology The patient was to vancomycin and Zosyn she has been admitted to the hospital infection disease was consulted for further management of antibiotic therapy patient did give a history of MRSA right fascial abscess and cellulitis in the past and currently do not have any other site with skin soft tissue infection Review of Systems Positive point has been mentioned in the HPI rest of the systems are negative Past Medical History Past Medical History: Diabetes Mellitus History of Any Multi-Drug Resistant Organisms: MRSA Year Discovered:: 2008 MDRO Source:: face Past Surgical History: Hysterectomy, Tonsillectomy Past Anesthesia/Blood Transfusion Reactions: No Reported Reaction Past Psychological History: Anxiety, Depression Smoking Status: Never smoker Past Alcohol Use History: None Reported Past Drug Use History: Marijuana Medications and Allergies Home Medications Medication Instructions Recorded Confirmed Type DULoxetine HCL [Cymbalta] 60 mg PO DAILY 10/20/19 10/20/19 History Gabapentin 600 mg PO TID 10/20/19 10/20/19 History HYDROcodone/APAP 5-325MG [[place] 1 tab PO TID 10/20/19 10/20/19 History 5-325] INSULIN ASPART (NovoLOG) [NovoLOG See Protocol SQ ACHS 10/20/19 10/20/19 History (formulary)] Naproxen 500 mg PO TID 10/20/19 10/20/19 History Zanaflex(Unknown Dose) 1 - 2 tab PO HS 10/20/19 10/20/19 History Allergies Allergy/AdvReac Type Severity Reaction Status Date / Time azithromycin Allergy Rash/Hives Verified 10/20/19 22:19 Physical Exam Vitals: Vital Signs Temp Pulse Pulse Resp BP BP Pulse Ox 10/21/19 07:00 98.3 F 88 17 116/78 95 10/21/19 01:20 87 113/70 10/21/19 00:53 98.3 F 89 16 93/58 95 10/20/19 23:43 93 18 96/63 96 10/20/19 22:16 97.9 F 91 16 98/61 97 10/20/19 20:19 99.4 F 142 H 20 102/71 98 Intake and Output 10/21/19 10/21/19 10/21/19 06:59 14:59 22:59 Intake Total 1490 Balance 1490 Intake: IV 200 Piperacillin-Tazobactam 3 200 .375 gm In Sodium Chloride 0.9% 100 ml @ 25 mls/hr IVPB Q8H TIM Rx#: [id number] Intake, IV Titration 1290 Amount Sodium Chloride 0.9% 1, 1040 000 ml @ 130 mls/hr IV . Q7H42M TIM Rx#:[id number] Vancomycin 1,000 mg In 250 Sodium Chloride 0.9% 250 ml @ 125 mls/hr IVPB Q8H TIM Rx#:[id number] Other: # Voids 3 Weight 53.07 kg GENERAL DESCRIPTION: Middle-aged female lying in bed, no distress. No tachypnea or accessory muscle of respiration use. HEENT: Shows Pallor , no scleral icterus. Oral mucous membrane is dry. No pharyngeal erythema or thrush NECK: Trachea central, no thyromegaly. LUNGS: Unlabored breathing. Clear to auscultation anteriorly. No wheeze or crackle. HEART: S1, S2, regular rate and rhythm. No loud murmur ABDOMEN: Soft, lower abdominal wall with an area off in urination swelling and redness which is tender to touch no fluctuation or drainage EXTREMITIES: No edema of feet. SKIN: No rash, no masses palpable. NEUROLOGICAL: The patient is awake, alert, oriented x3, mood and affect normal. Results CBC & Chem 7: 10/21/19 06:02 10/21/19 06:02 Labs: Abnormal Lab Results - Last 24 Hours (Table) 10/20/19 10/20/19 10/20/19 Range/Units 20:29 20:29 20:29 WBC 12.6 H (3.8-10.6) k/uL RBC (3.80-5.40) m/uL Hgb (11.4-16.0) gm/dL Hct (34.0-46.0) % MCV (80.0-100.0) fL Neutrophils # 10.1 H (1.3-7.7) k/uL Lymphocytes # (1.0-4.8) k/uL Sodium 133 L (137-145) mmol/L Chloride 94 L (98-107) mmol/L Creatinine 0.50 L (0.52-1.04) mg/dL Glucose 326 H (74-99) mg/dL POC Glucose (mg/dL) (75-99) mg/dL Plasma Lactic Acid Maurizio 5.2 H* (0.7-2.0) mmol/L Calcium (8.4-10.2) mg/dL C-Reactive Protein (<10.0) mg/L 10/20/19 10/21/19 10/21/19 Range/Units Unknown 06:02 06:02 WBC (3.8-10.6) k/uL RBC 3.28 L (3.80-5.40) m/uL Hgb 10.7 L (11.4-16.0) gm/dL Hct 33.5 L (34.0-46.0) % MCV 102.1 H (80.0-100.0) fL Neutrophils # (1.3-7.7) k/uL Lymphocytes # 0.9 L (1.0-4.8) k/uL Sodium 135 L (137-145) mmol/L Chloride (98-107) mmol/L Creatinine 0.46 L (0.52-1.04) mg/dL Glucose 248 H (74-99) mg/dL POC Glucose (mg/dL) (75-99) mg/dL Plasma Lactic Acid Maurizio (0.7-2.0) mmol/L Calcium 7.9 L (8.4-10.2) mg/dL C-Reactive Protein 31.6 H (<10.0) mg/L 10/21/19 10/21/19 10/21/19 Range/Units 06:42 11:32 16:32 WBC (3.8-10.6) k/uL RBC (3.80-5.40) m/uL Hgb (11.4-16.0) gm/dL Hct (34.0-46.0) % MCV (80.0-100.0) fL Neutrophils # (1.3-7.7) k/uL Lymphocytes # (1.0-4.8) k/uL Sodium (137-145) mmol/L Chloride (98-107) mmol/L Creatinine (0.52-1.04) mg/dL Glucose (74-99) mg/dL POC Glucose (mg/dL) 269 H 274 H 136 H (75-99) mg/dL Plasma Lactic Acid Maurizio (0.7-2.0) mmol/L Calcium (8.4-10.2) mg/dL C-Reactive Protein (<10.0) mg/L Assessment and Plan Assessment: 1- patient presented to hospital with abdominal wall pain swelling redness that started as a pimple now with an area of cellulitis and induration or evidence of any drainable abscess likely from gram-positive skin antonino, and likely MRSA and the patient did have a previous history of MRSA infection (1) Abdominal wall cellulitis Current Visit: Yes Status: Acute Code(s): L03.311 - CELLULITIS OF ABDOMINAL WALL SNOMED Code(s): 07745116 Plan: 1- Vancomycin pharmacy to dose target trough of 15 while watching his kidney function and Vanco trough closely 2- discontinue Zosyn 3- if the area started to drain will get cultures and the patient has been advised warm compression We will follow on clinical condition and cultures to further adjust medication if needed Thank you for this consultation will follow this patient with you Time with Patient: Greater than 30
[2019-10-22] MEDS: HYDROmorphone 1 MG/ML 1 ML SYRINGE IVP PRN ×6 (03:51→22:56)
[2019-10-22] MEDS: SODIUM CHLORIDE 0.9% 1,000 ML IV SCH ×3 (04:41→21:15)
[2019-10-22] MEDS ORDERED: VANCOMYCIN TROUGH DUE 1 EACH MISC MISCELLANE ONE (07:00)
[2019-10-22 08:02] LABS: Glucose,Whole Blood 138 mg/dL (75-99)
[2019-10-22] MEDS: INSULIN ASPART (NovoLOG) 100 UNIT/ML VIAL SQ SCH ×4 (08:04→20:49)
[2019-10-22] MEDS: NAPROXEN 250 MG TAB PO SCH ×2 (08:04→21:08)
[2019-10-22] MEDS: INSULIN DETEMIR (LEVEMIR) 100 UNIT/ML SYR SQ SCH (08:04)
[2019-10-22] MEDS: DULoxetine HCL 60 MG CAPSULE.DR PO SCH (08:04)
[2019-10-22] MEDS: ENOXAPARIN 40 MG/0.4 ML SYRINGE SQ SCH (08:04)
[2019-10-22] MEDS: GABAPENTIN 300 MG CAP PO SCH ×3 (08:05→20:49)
[2019-10-22] MEDS: HYDROcodone/APAP 5-325MG 1 EACH TAB PO SCH (09:01)
[2019-10-22] MEDS: VANCOMYCIN 1,000 MG in SODIUM CHLORIDE 0.9% 250 ML IVPB SCH ×3 (09:02→21:08)
[2019-10-22] MEDS ORDERED: VANCOMYCIN IV PER PHARMACY 1 EACH MISC MISCELLANE PRN (11:33)
[2019-10-22 12:21] LABS: Glucose,Whole Blood 67 mg/dL (75-99)
[2019-10-22 12:21] LABS: Glucose,Whole Blood 66 mg/dL (75-99)
[2019-10-22 12:49] LABS: Glucose,Whole Blood 68 mg/dL (75-99)
[2019-10-22 12:53] LABS: Glucose,Whole Blood 107 mg/dL (75-99)
[2019-10-22] MEDS ORDERED: LIDOCAINE 1% INJ 10MG/ML (20 ML MDV) SQ ONE (14:53)
[2019-10-22] MEDS ORDERED: HYDROmorphone 1 MG/ML 1 ML SYRINGE IVP STA (14:56)
--- NOTE | 2019-10-22 15:16 | P.GSCN ---
History of Present Illness Consult date: 10/22/19 Reason for Consult: Abdominal wall abscess History of present illness: Is a 39-year-old female who is being treated outpatient for abdominal wall cellulitis. Patient developed inflammation and induration near her previous Pfannenstiel incision. Patient worsening redness today. She's been to the hospital for IV antibiotics. There is swelling near the midportion of her scar suggestive of an abscess. Past Medical History Past Medical History: Diabetes Mellitus History of Any Multi-Drug Resistant Organisms: MRSA Year Discovered:: 2008 MDRO Source:: face Past Surgical History: Hysterectomy, Tonsillectomy Past Anesthesia/Blood Transfusion Reactions: No Reported Reaction Past Psychological History: Anxiety, Depression Smoking Status: Never smoker Past Alcohol Use History: None Reported Past Drug Use History: Marijuana Medications and Allergies Home Medications Medication Instructions Recorded Confirmed Type DULoxetine HCL [Cymbalta] 60 mg PO DAILY 10/20/19 10/20/19 History Gabapentin 600 mg PO TID 10/20/19 10/20/19 History HYDROcodone/APAP 5-325MG [[place] 1 tab PO TID 10/20/19 10/20/19 History 5-325] INSULIN ASPART (NovoLOG) [NovoLOG See Protocol SQ ACHS 10/20/19 10/20/19 History (formulary)] Naproxen 500 mg PO TID 10/20/19 10/20/19 History tiZANidine HCL [Zanaflex] 4 mg PO TID PRN 10/22/19 10/22/19 History Allergies Allergy/AdvReac Type Severity Reaction Status Date / Time azithromycin Allergy Rash/Hives Verified 10/20/19 22:19 Surgical - Exam Vital Signs Temp Pulse Resp BP Pulse Ox 99.4 F 142 H 20 102/71 98 10/20/19 20:19 10/20/19 20:19 10/20/19 20:19 10/20/19 20:19 10/20/19 20:19 - General well developed, well nourished, no distress - Eyes PERRL - ENT normal pinna - Neck no masses - Respiratory normal expansion - Cardiovascular Rhythm: regular - Abdomen Evidence of inflammation and induration along the Pfannenstiel incision. There is a fluctuant mass in the midportion of the scar. Abdomen: soft Results - Labs 10/21/19 06:02 10/21/19 06:02 Abnormal Lab Results - Last 24 Hours (Table) 10/21/19 10/21/19 10/22/19 Range/Units 16:32 20:24 07:17 POC Glucose (mg/dL) 136 H 181 H 138 H (75-99) mg/dL 10/22/19 10/22/19 10/22/19 Range/Units 11:56 12:11 12:29 POC Glucose (mg/dL) 66 L 67 L 68 L (75-99) mg/dL 10/22/19 Range/Units 12:51 POC Glucose (mg/dL) 107 H (75-99) mg/dL Microbiology - Last 24 Hours (Table) 10/20/19 22:11 Blood Culture - Preliminary Blood No Growth after 24 hours Assessment and Plan Assessment: Subcutaneous abdominal wall abscess and sensitivity. Patient undergo incision and drainage.
--- NOTE | 2019-10-22 15:17 | P.OP ---
Date of Procedure: 10/22/19 Preoperative Diagnosis: Abdominal wall abscess Postoperative Diagnosis: Abdominal wall abscess Procedure(s) Performed: Incision and drainage abdominal wall abscess Anesthesia: local Surgeon: Edward Collins Estimated Blood Loss (ml): 2 Pathology: other (Culture) Condition: stable Description of Procedure: The patient's placed in her bed in supine position. Her abdominal wall was prepped and draped in sterile fashion. The skin was anesthetized 1% local Xylocaine. Using 11 blade the skin was incised abscess. A small amount of purulent fluid was expressed. The wound was then cultured. It was then packed with 4 x 4 gauze. Sterile dressing was applied. Patient top she will well.
[2019-10-22] MEDS: ONDANSETRON 4 MG/2 ML VIAL IVP PRN (16:20)
[2019-10-22 17:34] LABS: Glucose,Whole Blood 78 mg/dL (75-99)
[2019-10-22] MEDS: ACETAMINOPHEN TAB 325 MG TAB PO PRN (18:46)
[2019-10-22 20:40] LABS: Glucose,Whole Blood 239 mg/dL (75-99)
--- NOTE | 2019-10-22 22:11 | P.PN ---
Progress Note - Text Progress Note Date: 10/22/19 Chief Complaint: Abdominal wall cellulitis History of presenting complaint: This is a 39-year-old patient of Dr. Analia Grier. Patient is a type I diabetic diagnosed one year ago. Has a insulin pump. It was recorded. Patient has been using short-acting insulin for some time. Only Humalog. No long- acting insulin. Patient does use a razor to shave around her pubic hair. Tuesday morning she noticed a pimple just above the pubic line and an epidural local compress on it.. It progressed to spread in the lower abdomen become more painful. It no fevers. No reported chills. Normally patient Accu-Cheks run in the 250s. She was started in IV vancomycin and Zosyn in the ER. And on IV Dilaudid. Patient is asking for IV Dilaudid pain medicine to be increased. Patient is on [place] and Neurontin for herniated disc of the spine. Today-when he came to see the patient the morning, she was on the phone comfortable. patient then became rather irate because her sugars had dropped. I was trying to get more into the history of the insulin when she called up her father. I repeatedly asked her that we could talk to him trying to help her. Finally left the room and called the patient advocate Arcenio to request the patient, not to be rude. In that case him happy to come back and see her. Otherwise she has a choice of changing of position. Patient also reported by the nurse to be due to the aid and the nurse last night. Patient Dilaudid was increased to 2 mg every [address] Schmidt from ID. He consulted Dr. Collins from general surgery. Patient was taken down to the OR later. Minimal if any pus was obtained. Rather superficial. I came back to see the patient in the evening. Accu-Cheks 239. Patient does not want any change in insulin. Was to be left the just on sliding scale... She'll follow up with osteopathy doctor. I did inform her that sugars need to be better controlled in view of acute infection. Patient ate 100% of all her meals. Review of systems: Was done for constitutional, cardiovascular, GI, pulmonary. relevant finding as above Active Medications Acetaminophen (Tylenol Tab) 650 mg PO Q6HR PRN PRN Reason: Mild Pain or Fever > 100.5 Last Admin: 10/22/19 18:46 Dose: 650 mg Documented by: Duloxetine HCl (Cymbalta) 60 mg PO DAILY [facility] Last Admin: 10/22/19 08:04 Dose: 60 mg Documented by: Enoxaparin Sodium (Lovenox) 40 mg SQ DAILY [facility] Last Admin: 10/22/19 08:04 Dose: 40 mg Documented by: Gabapentin (Neurontin) 600 mg PO TID [facility] Last Admin: 10/22/19 20:49 Dose: 600 mg Documented by: Hydromorphone HCl (Dilaudid) 2 mg IVP Q4HR PRN PRN Reason: Pain Last Admin: 10/22/19 18:35 Dose: 2 mg Documented by: Sodium Chloride (Saline 0.9%) 1,000 mls @ 130 mls/hr IV .Q7H42M [facility] Last Admin: 10/22/19 21:15 Dose: Not Given Documented by: Vancomycin HCl 1,000 mg/ (Sodium Chloride) 250 mls @ 125 mls/hr IVPB Q6H [facility] Last Admin: 10/22/19 21:08 Dose: 125 mls/hr Documented by: Insulin Aspart (Novolog) 0 unit SQ ACHS [facility]; Protocol Last Admin: 10/22/19 20:49 Dose: 3 unit Documented by: Miscellaneous Information (Vancomycin Trough Due) 1 each MISCELLANE ONCE ONE Stop: 10/23/19 08:01 Naloxone HCl (Narcan) 0.2 mg IV Q2M PRN PRN Reason: Opioid Reversal Naproxen (Naprosyn) 500 mg PO BID [facility] Last Admin: 10/22/19 21:08 Dose: 500 mg Documented by: Ondansetron HCl (Zofran) 4 mg IVP Q8HR PRN PRN Reason: Nausea And Vomiting Last Admin: 10/22/19 16:20 Dose: 4 mg Documented by: Physical examination: VITAL SIGNS: 97.6, 76, 16, 105/72, 100% on room air GENERAL: Sitting up in bed EYES: Pupils equal. Conjunctiva normal. HEENT: External appearance of nose and ears normal, oral cavity grossly normal. NECK: JVD not raised; masses not palpable. HEART: First and second heart sounds are normal; no edema. LUNGS: Respiratory rate normal; clear to auscultation. ABDOMEN: Soft, superficial wound of the surgery, with some surrounding redness, liver spleen not palpable, PSYCH: Alert and oriented x3; mood and affect anxious INVESTIGATIONS, reviewed in the clinical context: Accu-Cheks 67, 68, 107, 78, 239 Previous testing White count 12.6 hemoglobin 13.4 repeat 10.7 potassium 3.9 creatinine 0.5 lactic acid 5.2 CRP 31.6 Accu-Cheks 269, 274 Assessment: -Acute lower abdominal wall cellulitis precipitated by acute folliculitis likely from using a razor. Status post I&D. -Diabetes mellitus type 1 on insulin pump currently using only NovoLog due to the pumping recalled, uncontrolled with hyperglycemia, hypoglycemia -Macrocytic anemia cause unknown -Lactic acidosis possible sepsis from cellulitis -Chronic low back pain from herniated disc -Anxiety depression otherwise specified Plan: This morning Dilaudid was increased per patient request her 2 mg every 4 hours. [place] has been held. Levemir discontinued. Continue sliding scale. Will discuss with Dr. Schmidt from ID about discharge planning tomorrow.
--- NOTE | 2019-10-22 23:28 | PN ---
PROGRESS NOTE DATE OF SERVICE: 10/22/2019 REASON FOR FOLLOWUP: Abdominal wall cellulitis. INTERVAL HISTORY: Patient was seen on rounds this morning. The patient was complaining of more pain and swelling to the abdominal wall. The patient denies having any chest pain, shortness of breath or cough. No nausea, no vomiting and no diarrhea. She has been complaining of so far pain medication. PHYSICAL EXAMINATION: Blood pressure of 114/64 with a pulse of 70, temperature 98.4. She is 99% on room air. General description is a middle-aged female lying in bed in no distress. RESPIRATORY SYSTEM: Unlabored breathing, clear to auscultation anteriorly. HEART: S1, S2. Regular rate and rhythm. ABDOMEN: Soft. Abdominal wall area of swelling and induration. No open wound or any drainage. LABS: Hemoglobin is 10.7, white count 8.7 as of yesterday. Vancomycin trough slightly low. DIAGNOSTIC IMPRESSION AND PLAN: Patient with abdominal wall cellulitis with concern for an abscess. Surgery was consulted. Did do a bedside I and D. No significant purulent material came out. The patient's vancomycin trough is low. Dose needs to be adjusted to keep the trough around 15. Area of the cellulitis has been marked and will be re-evaluate the patient tomorrow. Case was discussed in detail with the admitting physician as well as with the father on the phone. Time spent was more than 25 minutes. ADRIANNEL / DESTINYN: [id number] /
[2019-10-23] MEDS: ACETAMINOPHEN TAB 325 MG TAB PO PRN ×2 (02:28→12:18)
[2019-10-23] MEDS: HYDROmorphone 1 MG/ML 1 ML SYRINGE IVP PRN ×4 (03:08→14:20)
[2019-10-23] MEDS: VANCOMYCIN 1,000 MG in SODIUM CHLORIDE 0.9% 250 ML IVPB SCH ×2 (03:08→09:03)
[2019-10-23 05:33] LABS: Glucose,Whole Blood 280 mg/dL (75-99)
[2019-10-23] MEDS: SODIUM CHLORIDE 0.9% 1,000 ML IV SCH ×3 (05:42→18:16)
[2019-10-23 06:38] LABS: Glucose,Whole Blood 239 mg/dL (75-99)
[2019-10-23] MEDS: INSULIN ASPART (NovoLOG) 100 UNIT/ML VIAL SQ SCH ×4 (06:45→21:09)
[2019-10-23 07:21] LABS: African American GFR (CKD) >90 (>60 ml/min/1.73 sqM); Non-African American GFR(CKD) >90 (>60 ml/min/1.73 sqM)
[2019-10-23] MEDS ORDERED: VANCOMYCIN TROUGH DUE 1 EACH MISC MISCELLANE ONE (08:00)
[2019-10-23] MEDS: ENOXAPARIN 40 MG/0.4 ML SYRINGE SQ SCH (09:03)
[2019-10-23] MEDS: NAPROXEN 250 MG TAB PO SCH ×2 (09:04→21:17)
[2019-10-23] MEDS: GABAPENTIN 300 MG CAP PO SCH ×3 (09:04→21:17)
[2019-10-23] MEDS: DULoxetine HCL 60 MG CAPSULE.DR PO SCH (09:05)
[2019-10-23 11:42] LABS: Glucose,Whole Blood 225 mg/dL (75-99)
--- NOTE | 2019-10-23 11:55 | P.PN ---
Progress Note - Text Progress Note Date: 10/23/19 The patient has completed increased pain. On exam there is increased induration across her abdominal wall. There is some minimal purulent output at her incision site. Worsening sailors abdominal wall. The rectum the patient stay in the hospital continue receive IV antibiotics. There is some question that she may be discharged home today. I recommended that she stay. Revaluate tomorrow.
[2019-10-23] MEDS ORDERED: NICOTINE POLACRILEX 2 MG GUM BUCCAL PRN (13:21)
[2019-10-23] MEDS: NICOTINE 21MG/24HR PATCH TRANSDERM SCH (14:21)
[2019-10-23 14:48] LABS: Hemoglobin A1C 11.1 % (4.0-6.0)
[2019-10-23] MEDS ORDERED: NALOXONE 0.4 MG/ML 1 ML VIAL IV PRN (16:09)
--- NOTE | 2019-10-23 16:11 | P.PAINCN ---
History of Present Illness - Reason for Consult Consult date: 10/23/19 - History of Present Illness This is a 39-year-old patient referred by Dr. Farias who is an inpatient consult for abdominal pain after cellulitis of the abdomen. Patient was recently admitted with a wound on her anterior abdomen and recently had an incision and drainage. Patient has been having significant pain since the procedure. The pain is located in the lower aspect of the abdomen described as sharp stabbing and burning radiating out to the flanks. Any type of movement makes the pain worse and only rest makes the pain better. Patient is being treated for active infection is unsure when she will be going home. Patient currenly on dilaudid 2 mg Q4H IV prn, Cymbalta 60 mg QD, gabapentin 300 mg TID, tylenol 650 mg Q6h PRN. She says that this regimen does not control her pain very well and the dilaudid does work but only for a short period of time. She does have a history of chronic back pain for which she sees Dr. Chambers and is prescribed [place] 5 TID and gabapentin 600 mg TID. In addition to above, 13-point review of systems is also negative for chest pain, shortness of breath, changes in vision, changes in hearing, new onset weakness, abdominal pain, diarrhea, extreme fatigue, malaise, fever, skin changes, homicidal or suicidal ideation, or bowel or bladder incontinence. Physical exam: Vital Signs: Reviewed in EMR GENERAL: Well appearing, in no acute distress PSYCH: Mood and affect is appropriate. Awake, alert, and oriented SKIN: Skin color, texture, turgor normal, no rashes or lesions HEENT: Normocephalic, atraumatic. EOM intact CV: No pedal edema RESP: Respirations are unlabored, no audible wheezing GI: Abdomen has clean and dry dressing over incision and drainage site. Redness extending to the flanks on the lower aspect of the abdomen. Patient does e xhibit guarding and TTP over the entirety of the abdomen Assessment: 1. Acute pain in the setting of abdominal skin abscess after incision and drainage Plan: - Given that the patient is having ineffective pain control with IV pushes every 4 hours, will change regimen to morphine [employer] 1 mg Q6min max 10 mg/hr. Can assess her needs over 24 hours and then convert her IV regimen to an oral regimen to be discharged on - Primary team will have to consult with Dr. Chambers if she is discharged with controlled substances as she has an opioid agreement with them - Schedule tylenol 1000 mg Q6hr - Keep gabapentin 600 mg TID and Cymbalta 60 mg QD Past Medical History Past Medical History: Diabetes Mellitus History of Any Multi-Drug Resistant Organisms: MRSA Year Discovered:: 2008 MDRO Source:: face Past Surgical History: Hysterectomy, Tonsillectomy Past Anesthesia/Blood Transfusion Reactions: No Reported Reaction Past Psychological History: Anxiety, Depression Smoking Status: Never smoker Past Alcohol Use History: None Reported Past Drug Use History: Marijuana Medications and Allergies Home Medications Medication Instructions Recorded Confirmed Type DULoxetine HCL [Cymbalta] 60 mg PO DAILY 10/20/19 10/20/19 History Gabapentin 600 mg PO TID 10/20/19 10/20/19 History HYDROcodone/APAP 5-325MG [[place] 1 tab PO TID 10/20/19 10/20/19 History 5-325] INSULIN ASPART (NovoLOG) [NovoLOG See Protocol SQ ACHS 10/20/19 10/20/19 History (formulary)] Naproxen 500 mg PO TID 10/20/19 10/20/19 History tiZANidine HCL [Zanaflex] 4 mg PO TID PRN 10/22/19 10/22/19 History Sulfamethox-Tmp 800-160Mg [Bactrim 1 tab PO Q12HR #20 tab 10/23/19 Rx DS 800-160 mg] Allergies Allergy/AdvReac Type Severity Reaction Status Date / Time azithromycin Allergy Rash/Hives Verified 10/20/19 22:19 Physical Exam Vitals: Vital Signs Temp Pulse Resp BP Pulse Ox 10/23/19 12:25 98.9 F 86 16 121/80 95 10/23/19 07:00 98.5 F 86 16 120/83 94 L 10/22/19 23:00 98 F 72 18 102/66 95 10/22/19 20:00 98.4 F 70 18 114/64 99 10/22/19 17:08 97.6 F 76 16 105/72 100 Intake and Output 10/23/19 10/23/19 10/23/19 06:59 14:59 22:59 Intake Total 240 Balance 240 Intake: Oral 240 Other: # Voids 1 2 Results CBC & Chem 7: 10/21/19 06:02 10/23/19 06:54 Labs: Abnormal Lab Results - Last 24 Hours (Table) 10/22/19 10/23/19 10/23/19 Range/Units 20:40 05:21 06:37 Creatinine (0.52-1.04) mg/dL POC Glucose (mg/dL) 239 H 280 H 239 H (75-99) mg/dL Hemoglobin A1c (4.0-6.0) % 10/23/19 10/23/19 10/23/19 Range/Units 06:54 06:54 11:40 Creatinine 0.43 L (0.52-1.04) mg/dL POC Glucose (mg/dL) 225 H (75-99) mg/dL Hemoglobin A1c 11.1 H (4.0-6.0) % Microbiology - Last 24 Hours (Table) 10/22/19 15:15 Gram Stain - Preliminary Abdomen Wound Culture - Preliminary 10/20/19 22:11 Blood Culture - Preliminary Blood No Growth after 48 hours PQRS Measure Charge Sheet PQRS Narrative: Smoking Status Former smoker Blood Pressure [Right Arm] 121/80 Blood Pressure [Left Arm] 115/77 Blood Pressure 96/63 Pain Intensity [None] 0 Pain Intensity [Abdomen] 10 Pain Intensity 7 Pain Scale Used Numeric (1 - 10) Scale Used Numeric (1 - 10) Home Medications: Ambulatory Orders DULoxetine HCL [Cymbalta] 60 mg PO DAILY 10/20/19 Gabapentin 600 mg PO TID 10/20/19 HYDROcodone/APAP 5-325MG [[place] 5-325] 1 tab PO TID 10/20/19 INSULIN ASPART (NovoLOG) [NovoLOG (formulary)] See Protocol SQ ACHS 10/20/19 Naproxen 500 mg PO TID 10/20/19 tiZANidine HCL [Zanaflex] 4 mg PO TID PRN 10/22/19 Sulfamethox-Tmp 800-160Mg [Bactrim DS 800-160 mg] 1 tab PO Q12HR #20 tab 10/23/19
[2019-10-23] MEDS: ALPRAZolam 0.25 MG TAB PO PRN (16:37)
[2019-10-23] MEDS: VANCOMYCIN 1,250 MG in SODIUM CHLORIDE 0.9% 250 ML IVPB SCH (16:37)
[2019-10-23 17:38] LABS: Glucose,Whole Blood 315 mg/dL (75-99)
[2019-10-23] MEDS: MORPHINE PCA 50 MG/50 ML BAG IV PRN (18:07)
[2019-10-23 21:02] LABS: Glucose,Whole Blood 214 mg/dL (75-99)
--- NOTE | 2019-10-23 22:16 | PN ---
PROGRESS NOTE DATE OF SERVICE: 10/23/2019 REASON FOR FOLLOWUP: Abdominal wall cellulitis and a question of abscess. INTERVAL HISTORY: The patient is currently afebrile. The patient is status post I&D at the bedside yesterday of the abdominal wall with no significant purulent drainage. Culture has been obtained which is currently showing a Gram-positive. The patient has been complaining about the inadequacy of her pain medication. Denies having any chest pain, shortness of breath or cough. No nausea, no vomiting or diarrhea. PHYSICAL EXAMINATION: Blood pressure 121/80 with a pulse of 86, temperature 98.9. She is 95% on room air. General description is a middle-aged female lying in bed in no distress. RESPIRATORY SYSTEM: Unlabored breathing. Clear to auscultation anteriorly. HEART: S1, S2. Regular rate and rhythm. ABDOMEN: Soft. Overall induration is slightly decreased. No drainage. LABS: Vancomycin trough this morning is showing 24.2. Kidney function is 0.43. DIAGNOSTIC IMPRESSION AND PLAN: Patient with an abdominal wall abscess and cellulitis in this patient; to continue vancomycin. Dose will be adjusted by the pharmacy. Waiting for the final sensitivity. Continue supportive care. MMODL / IJN: [id number] /
--- NOTE | 2019-10-23 23:18 | P.PN ---
Progress Note - Text Progress Note Date: 10/23/19 Chief Complaint: Abdominal wall cellulitis History of presenting complaint: This is a 39-year-old patient of Dr. Analia Grier. Patient is a type I diabetic diagnosed one year ago. Has a insulin pump. It was recorded. Patient has been using short-acting insulin for some time. Only Humalog. No long- acting insulin. Patient does use a razor to shave around her pubic hair. Tuesday morning she noticed a pimple just above the pubic line and an epidural local compress on it.. It progressed to spread in the lower abdomen become more painful. It no fevers. No reported chills. Normally patient Accu-Cheks run in the 250s. She was started in IV vancomycin and Zosyn in the ER. And on IV Dilaudid. Patient is asking for IV Dilaudid pain medicine to be increased. Patient is on [place] and Neurontin for herniated disc of the spine. Patient was treated for cellulitis. And folliculitis. Was taken to the [facility] by Dr. Collins. No abscess was found. Patient does follow with Dr. Zaragoza for pain medications. Today-nurse called me that patient was wanting more frequent pain medication that is Dilaudid. Already on of 2 mg every 3 hours. Eating all her meals. Found to be otherwise comfortable. Review of systems: Was done for constitutional, cardiovascular, GI, pulmonary. relevant finding as above Active Medications Acetaminophen (Tylenol Tab) 1,000 mg PO Q6HR [facility] Alprazolam (Xanax) 0.25 mg PO Q8H PRN PRN Reason: Anxiety Last Admin: 10/23/19 16:37 Dose: 0.25 mg Documented by: Duloxetine HCl (Cymbalta) 60 mg PO DAILY [facility] Last Admin: 10/23/19 09:05 Dose: 60 mg Documented by: Enoxaparin Sodium (Lovenox) 40 mg SQ DAILY [facility] Last Admin: 10/23/19 09:03 Dose: 40 mg Documented by: Gabapentin (Neurontin) 600 mg PO TID [facility] Last Admin: 10/23/19 21:17 Dose: 600 mg Documented by: Sodium Chloride (Saline 0.9%) 1,000 mls @ 130 mls/hr IV .Q7H42M [facility] Last Admin: 10/23/19 18:16 Dose: Not Given Documented by: Vancomycin HCl 1,250 mg/ (Sodium Chloride) 250 mls @ 125 mls/hr IVPB Q8HR [facility] Last Admin: 10/23/19 16:37 Dose: 125 mls/hr Documented by: Insulin Aspart (Novolog) 0 unit SQ ACHS [facility]; Protocol Last Admin: 10/23/19 21:09 Dose: 3 unit Documented by: Morphine Sulfate (Morphine [employer]) 50 mg IV PER PROTOCOL PRN; Protocol PRN Reason: Pain Control Last Admin: 10/23/19 18:07 Dose: 50 mg Documented by: Naloxone HCl (Narcan) 0.2 mg IV Q2M PRN PRN Reason: Opioid Reversal Naloxone HCl (Narcan) 0.2 mg IV Q2M PRN PRN Reason: Opioid Reversal Naproxen (Naprosyn) 500 mg PO BID [facility] Last Admin: 10/23/19 21:17 Dose: 500 mg Documented by: Nicotine (Habitrol 21mg/24hr Patch) 1 patch TRANSDERM DAILY [facility] Last Admin: 10/23/19 14:21 Dose: 1 patch Documented by: Nicotine Polacrilex (Nicorette Gum) 2 mg [place] Q2HR PRN PRN Reason: Nicotine Cravings Ondansetron HCl (Zofran) 4 mg IVP Q8HR PRN PRN Reason: Nausea And Vomiting Last Admin: 10/22/19 16:20 Dose: 4 mg Documented by: Physical examination: VITAL SIGNS: 98.9, 86, 16, 121/80, 95% room air GENERAL: Sitting up in bed, comfortable EYES: Pupils equal. Conjunctiva normal. HEENT: External appearance of nose and ears normal, oral cavity grossly normal. NECK: JVD not raised; masses not palpable. HEART: First and second heart sounds are normal; no edema. LUNGS: Respiratory rate normal; clear to auscultation. ABDOMEN: Soft, superficial wound of the surgery, with decreased surrounding redness, liver spleen not palpable, PSYCH: Alert and oriented x3; mood and affect anxious INVESTIGATIONS, reviewed in the clinical context: Accu-Cheks 225, 315, 214. Previous testing White count 12.6 hemoglobin 13.4 repeat 10.7 potassium 3.9 creatinine 0.5 lactic acid 5.2 CRP 31.6 Accu-Cheks 269, 274 HbA1c 11.1 Assessment: -Acute lower abdominal wall cellulitis precipitated by acute folliculitis likely from using a razor. Status post I&D. -Diabetes mellitus type 1 on insulin pump currently using only NovoLog due to the pump recalled, uncontrolled with hyperglycemia, -Macrocytic anemia cause unknown -Lactic acidosis possible sepsis from cellulitis-improved -Chronic low back pain from herniated disc, on chronic pain medications as per -Anxiety depression otherwise specified Plan: -Dr. Collins evaluated that the patient is to stay longer on IV antibiotics. We will do the same. Pain management team has been consulted. Other medications to continue.
[2019-10-24] MEDS: VANCOMYCIN 1,250 MG in SODIUM CHLORIDE 0.9% 250 ML IVPB SCH ×3 (00:09→16:07)
[2019-10-24] MEDS: ACETAMINOPHEN TAB 500 MG TAB PO SCH ×4 (00:10→17:44)
[2019-10-24] MEDS: SODIUM CHLORIDE 0.9% 1,000 ML IV SCH ×2 (05:24→16:15)
[2019-10-24 05:37] LABS: Basophils % (A) 0 %; Eosinophils # (A) 0.1 k/uL (0-0.7); Eosinophils % (A) 2 %; HCT 32.5 % (34.0-46.0); HGB 9.8 gm/dL (11.4-16.0); Hypochromasia Slight; Lymphocytes # (A) 1.5 k/uL (1.0-4.8); Lymphocytes % (A) 19 %; MCH 31.5 pg (25.0-35.0); MCHC 30.3 g/dL (31.0-37.0); MCV 103.7 fL (80.0-100.0); Macrocytosis Slight; Mean Platelet Volume 7.7; Monocytes # (A) 0.4 k/uL (0-1.0); Monocytes % (A) 5 %; Neutrophils # (A) 5.7 k/uL (1.3-7.7); Neutrophils % (A) 73 %; Platelet Count 249 k/uL (150-450); RBC 3.13 m/uL (3.80-5.40); RDW 12.1 % (11.5-15.5); WBC 7.8 k/uL (3.8-10.6)
[2019-10-24 05:48] LABS: African American GFR (CKD) >90 (>60 ml/min/1.73 sqM); Anion Gap 3 mmol/L; Blood Urea Nitrogen 5 mg/dL (7-17); Calcium 8.5 mg/dL (8.4-10.2); Carbon Dioxide 31 mmol/L (22-30); Chloride 100 mmol/L (98-107); Glucose 234 mg/dL (74-99); Non-African American GFR(CKD) >90 (>60 ml/min/1.73 sqM); Potassium 3.7 mmol/L (3.5-5.1); Sodium 134 mmol/L (137-145)
[2019-10-24 06:09] LABS: C Reactive Protein 174.9 mg/L (<10.0)
[2019-10-24 06:26] LABS: Glucose,Whole Blood 221 mg/dL (75-99)
[2019-10-24] MEDS: INSULIN ASPART (NovoLOG) 100 UNIT/ML VIAL SQ SCH ×4 (06:31→21:25)
[2019-10-24] MEDS: DULoxetine HCL 60 MG CAPSULE.DR PO SCH (09:20)
[2019-10-24] MEDS: GABAPENTIN 300 MG CAP PO SCH ×3 (09:20→21:27)
[2019-10-24] MEDS: NICOTINE 21MG/24HR PATCH TRANSDERM SCH (09:20)
[2019-10-24] MEDS: NAPROXEN 250 MG TAB PO SCH ×2 (09:20→21:26)
[2019-10-24] MEDS: ENOXAPARIN 40 MG/0.4 ML SYRINGE SQ SCH (09:20)
[2019-10-24 11:58] LABS: Glucose,Whole Blood 365 mg/dL (75-99)
[2019-10-24 13:30] VITALS: BMI 22.1
--- NOTE | 2019-10-24 14:03 | P.PN ---
Subjective Progress Note Date: 10/24/19 CHIEF COMPLAINT: Abdominal wall abscess HISTORY OF PRESENT ILLNESS: Abdominal wall abscess status post I&D on 10/22/2019. Patient's pain is better controlled with the morphine FUNDRAISING MANAGER pump that was started by pain management. Wound culture growing presumptive MRSA. Infectious disease has placed patient on vancomycin. Patient is still complaining of some pain and redness along the left abdomen and into the lower pelvic area. She is afebrile. White count 7.8 PHYSICAL EXAM: VITAL SIGNS: Reviewed. GENERAL: Well-developed in no acute distress. HEENT: No sclera icterus. Extraocular movements grossly intact. Moist buccal mucosa. Head is atraumatic, normocephalic. ABDOMEN: Soft. Nondistended. Patient has increased induration across her abdominal wall. Patient having some purulent discharge from incision site NEUROLOGIC: Alert and oriented. Cranial nerves II through XII grossly intact. ASSESSMENT: 1. Abdominal wall abscess and cellulitis. Status post I&D on 10/22/2019 PLAN: Continue IV antibiotics per infectious disease Continue pain management per pain service No further surgical intervention at this time Physician Feed Preparation Operator note has been reviewed by physician. Signing provider agrees with the documented findings, assessment, and plan of care. Objective - Vital Signs Vital signs: Vital Signs Temp 98 F 10/24/19 09:00 Pulse 94 10/24/19 09:00 Resp 18 10/24/19 09:00 BP 117/78 10/24/19 09:00 Pulse Ox 98 10/24/19 09:00 Intake & Output 10/23/19 10/24/19 10/24/19 18:59 06:59 18:59 Intake Total 1160 Balance 1160 Weight 53.07 kg Intake: Oral 1160 Other: # Voids 2 2 - Labs CBC & Chem 7: 10/24/19 05:21 10/24/19 05:21 Labs: Abnormal Lab Results - Last 24 Hours (Table) 10/23/19 10/23/19 10/23/19 Range/Units 06:54 17:37 21:02 RBC (3.80-5.40) m/uL Hgb (11.4-16.0) gm/dL Hct (34.0-46.0) % MCV (80.0-100.0) fL MCHC (31.0-37.0) g/dL Sodium (137-145) mmol/L Carbon Dioxide (22-30) mmol/L BUN (7-17) mg/dL Creatinine (0.52-1.04) mg/dL Glucose (74-99) mg/dL POC Glucose (mg/dL) 315 H 214 H (75-99) mg/dL Hemoglobin A1c 11.1 H (4.0-6.0) % C-Reactive Protein (<10.0) mg/L 10/24/19 10/24/19 10/24/19 Range/Units 05:21 05:21 06:24 RBC 3.13 L (3.80-5.40) m/uL Hgb 9.8 L (11.4-16.0) gm/dL Hct 32.5 L (34.0-46.0) % MCV 103.7 H (80.0-100.0) fL MCHC 30.3 L (31.0-37.0) g/dL Sodium 134 L (137-145) mmol/L Carbon Dioxide 31 H (22-30) mmol/L BUN 5 L (7-17) mg/dL Creatinine 0.47 L (0.52-1.04) mg/dL Glucose 234 H (74-99) mg/dL POC Glucose (mg/dL) 221 H (75-99) mg/dL Hemoglobin A1c (4.0-6.0) % C-Reactive Protein 174.9 H (<10.0) mg/L 10/24/19 Range/Units 11:56 RBC (3.80-5.40) m/uL Hgb (11.4-16.0) gm/dL Hct (34.0-46.0) % MCV (80.0-100.0) fL MCHC (31.0-37.0) g/dL Sodium (137-145) mmol/L Carbon Dioxide (22-30) mmol/L BUN (7-17) mg/dL Creatinine (0.52-1.04) mg/dL Glucose (74-99) mg/dL POC Glucose (mg/dL) 365 H (75-99) mg/dL Hemoglobin A1c (4.0-6.0) % C-Reactive Protein (<10.0) mg/L Microbiology - Last 24 Hours (Table) 10/20/19 22:11 Blood Culture - Preliminary Blood No Growth after 72 hours 10/22/19 15:15 Gram Stain - Preliminary Abdomen Wound Culture - Preliminary Presumptive MRSA
--- NOTE | 2019-10-24 15:12 | P.PAINPG ---
Subjective This is a 39-year-old patient referred by Dr. Farias who is an inpatient consult for abdominal pain after cellulitis of the abdomen. Patient was recently admitted with a wound on her anterior abdomen and recently had an incision and drainage. Patient has been having significant pain since the procedure. The pain is located in the lower aspect of the abdomen described as sharp stabbing and burning radiating out to the flanks. Any type of movement makes the pain worse and only rest makes the pain better. Patient is being treated for active infection is unsure when she will be going home. Patient currenly on dilaudid 2 mg Q4H IV prn, Cymbalta 60 mg QD, gabapentin 300 mg TID, tylenol 650 mg Q6h PRN. She says that this regimen does not control her pain very well and the dilaudid does work but only for a short period of time. She does have a history of chronic back pain for which she sees Dr. Chambers and is prescribed [place] 5 TID and gabapentin 600 mg TID. Our plan was to put her on a morphine RESTAURANT BARTENDER 1 mg Q6min 10 mg max per hour and Tylenol 1000 mg Q6H 10/23: patient notes that she is doing quite well with the new pain regimen. She has used approximately 35 mg in 21 hours of having the RESTAURANT BARTENDER In addition to above, 13-point review of systems is also negative for chest pain, shortness of breath, changes in vision, changes in hearing, new onset weakness, abdominal pain, diarrhea, extreme fatigue, malaise, fever, skin changes, homicidal or suicidal ideation, or bowel or bladder incontinence. Physical exam: Vital Signs: Reviewed in EMR GENERAL: Well appearing, in no acute distress, sleepy PSYCH: Mood and affect is appropriate. Awake, alert, and oriented SKIN: Skin color, texture, turgor normal, no rashes or lesions HEENT: Normocephalic, atraumatic. EOM intact CV: No pedal edema RESP: Respirations are unlabored, no audible wheezing GI: Abdomen has clean and dry dressing over incision and drainage site. Redness extending to the flanks on the lower aspect of the abdomen. Patient does exhibit guarding and TTP over the entirety of the abdomen Assessment: 1. Acute pain in the setting of abdominal skin abscess after incision and drainage Plan: - Keep tylenol 100 mg Q6H (convert to Q8H as an outpatient), Cymbalta 60 mg QD, gabapentin 600 mg TID - She has currently used 35 mg of morphine over 21 hours, this is approximately 105 MME in 24 hours. Accounting for 25-30% reduction due to cross tolerance, a satisfactory regimen should be around 75 MME. This equates to Oxycodone 10 mg Q6H prn. When she is discharged she should follow up with Dr Chambers to discuss weaning and returning to her home regimen. - We will sign off. Thank you for the consult. Objective - Vital Signs Vital signs: Vital Signs Temp 98 F 10/24/19 09:00 Pulse 94 10/24/19 09:00 Resp 18 10/24/19 09:00 BP 117/78 10/24/19 09:00 Pulse Ox 98 10/24/19 09:00 Intake & Output 10/23/19 10/24/19 10/24/19 18:59 06:59 18:59 Intake Total 1160 750 Balance 1160 750 Weight 53.07 kg Intake: Oral 1160 750 Other: # Voids 2 2 3 - Labs CBC & Chem 7: 10/24/19 05:21 10/24/19 05:21 Labs: Abnormal Lab Results - Last 24 Hours (Table) 10/23/19 10/23/19 10/24/19 Range/Units 17:37 21:02 05:21 RBC (3.80-5.40) m/uL Hgb (11.4-16.0) gm/dL Hct (34.0-46.0) % MCV (80.0-100.0) fL MCHC (31.0-37.0) g/dL Sodium 134 L (137-145) mmol/L Carbon Dioxide 31 H (22-30) mmol/L BUN 5 L (7-17) mg/dL Creatinine 0.47 L (0.52-1.04) mg/dL Glucose 234 H (74-99) mg/dL POC Glucose (mg/dL) 315 H 214 H (75-99) mg/dL C-Reactive Protein 174.9 H (<10.0) mg/L 10/24/19 10/24/19 10/24/19 Range/Units 05:21 06:24 11:56 RBC 3.13 L (3.80-5.40) m/uL Hgb 9.8 L (11.4-16.0) gm/dL Hct 32.5 L (34.0-46.0) % MCV 103.7 H (80.0-100.0) fL MCHC 30.3 L (31.0-37.0) g/dL Sodium (137-145) mmol/L Carbon Dioxide (22-30) mmol/L BUN (7-17) mg/dL Creatinine (0.52-1.04) mg/dL Glucose (74-99) mg/dL POC Glucose (mg/dL) 221 H 365 H (75-99) mg/dL C-Reactive Protein (<10.0) mg/L Microbiology - Last 24 Hours (Table) 10/20/19 22:11 Blood Culture - Preliminary Blood No Growth after 72 hours 10/22/19 15:15 Gram Stain - Preliminary Abdomen Wound Culture - Preliminary Presumptive MRSA PQRS Measure Charge Sheet PQRS Narrative: Smoking Status Former smoker Blood Pressure [Right Arm] 117/78 Blood Pressure [Left Arm] 115/77 Blood Pressure 96/63 Pain Intensity [None] 0 Pain Intensity [Abdomen] 8 Pain Intensity 5 Pain Scale Used Numeric (1 - 10) Scale Used Numeric (1 - 10) Home Medications: Ambulatory Orders DULoxetine HCL [Cymbalta] 60 mg PO DAILY 10/20/19 Gabapentin 600 mg PO TID 10/20/19 HYDROcodone/APAP 5-325MG [[place] 5-325] 1 tab PO TID 10/20/19 INSULIN ASPART (NovoLOG) [NovoLOG (formulary)] See Protocol SQ ACHS 10/20/19 Naproxen 500 mg PO TID 10/20/19 tiZANidine HCL [Zanaflex] 4 mg PO TID PRN 10/22/19 Sulfamethox-Tmp 800-160Mg [Bactrim DS 800-160 mg] 1 tab PO Q12HR #20 tab 10/23/19 Controlled Substance Measures - Controlled Substance Measures Is patient prescribed a controlled substance at discharge?: No
[2019-10-24 17:39] LABS: Glucose,Whole Blood 220 mg/dL (75-99)
--- NOTE | 2019-10-24 19:36 | PN ---
PROGRESS NOTE DATE OF SERVICE: 10/24/2019 REASON FOR FOLLOWUP: Abdominal wall abscess and cellulitis, MRSA. INTERVAL HISTORY: The patient is currently afebrile. The patient is breathing comfortably. The patient remains to be in pain; not controlled on her current pain medication. The patient denies having any chest pain or shortness of breath or cough. PHYSICAL EXAMINATION: Blood pressure 113/78 with a pulse of 94, temperature 98. She is 98% on room air. General description is a young female lying in bed in no distress. RESPIRATORY SYSTEM: Unlabored breathing. Clear to auscultation anteriorly. HEART: S1, S2. Regular rate and rhythm. ABDOMEN: Soft. Minimal redness in the left lower abdominal wall area. Induration has decreased. LABS: Hemoglobin 9.8, white count 7.8, BUN of 5, creatinine 0.47. DIAGNOSTIC IMPRESSION AND PLAN: Patient with abdominal wall abscess and cellulitis, status post bedside drainage. Culture with presumptive MRSA, sensitivities pending. Will keep the patient on vancomycin. Dose will be adjusted by the pharmacy. Continue and monitor her clinical course closely. MMODL / IJN: [id number] /
[2019-10-24 21:20] LABS: Glucose,Whole Blood 231 mg/dL (75-99)
--- NOTE | 2019-10-24 21:58 | P.PN ---
Progress Note - Text Progress Note Date: 10/24/19 Chief Complaint: Abdominal wall cellulitis History of presenting complaint: This is a 39-year-old patient of Dr. Analia Grier. Patient is a type I diabetic diagnosed one year ago. Has a insulin pump. It was recorded. Patient has been using short-acting insulin for some time. Only Humalog. No long- acting insulin. Patient does use a razor to shave around her pubic hair. Tuesday morning she noticed a pimple just above the pubic line and an epidural local compress on it.. It progressed to spread in the lower abdomen become more painful. It no fevers. No reported chills. Normally patient Accu-Cheks run in the 250s. She was started in IV vancomycin and Zosyn in the ER. And on IV Dilaudid. Patient is asking for IV Dilaudid pain medicine to be increased. Patient is on Kenn[place] and Neurontin for herniated disc of the spine. Patient was treated for cellulitis. And folliculitis. Was taken to the [facility] by Dr. Collins. No abscess was found. Patient does follow with Dr. Zaragoza for pain medications. Patient is requiring up to 2 mg of Dilaudid every 3 hours. Pain management he was consulted. They put her on morphine pump. Patient eating all her meals. Today-patient on a morphine pump using it when necessary. Complaining of abdominal wall pain. Eating all her meals. No fevers. Has been up to the bathroom. Consultation: Dr. Sewell from ID Dr. Collins from general surgery Dr. Naranjo from pain management Physical examination: VITAL SIGNS: 98, 94, 18, 117/78, 98% room air GENERAL: Laying in bed, comfortable EYES: Pupils equal. Conjunctiva normal. HEENT: External appearance of nose and ears normal, oral cavity grossly normal. NECK: JVD not raised; masses not palpable. HEART: First and second heart sounds are normal; no edema. LUNGS: Respiratory rate normal; clear to auscultation. ABDOMEN: Soft, superficial wound of the surgery, with less surrounding redness, liver spleen not palpable, PSYCH: Alert and oriented x3; mood and affect anxious INVESTIGATIONS, reviewed in the clinical context: White count 7.8 hemoglobin 9.8 potassium 3.7 creatinine 0.47 pro-calcitonin 0.05 Accu-Cheks 221, 365, 220 Previous testing White count 12.6 hemoglobin 13.4 repeat 10.7 potassium 3.9 creatinine 0.5 lactic acid 5.2 CRP 31.6 Accu-Cheks 269, 274 HbA1c 11.1 Wound culture-MRSA Assessment: -Acute lower abdominal wall cellulitis precipitated by acute folliculitis likely from using a razor. Status post I&D.-Currently improving. Pro-calcitonin is normal. Normal white count. Secondary to MRSA -Diabetes mellitus type 1 on insulin pump recalled, uncontrolled with hyperglycemia, -Macrocytic anemia cause unknown-check B12 and TSH -Lactic acidosis possible sepsis from cellulitis-improved -Chronic low back pain from herniated disc, on chronic pain medications as per -Anxiety depression otherwise specified Plan: Continue current medications injury to plan. Patient to be discharged when okay with Dr. Collins. Antibiotics per Dr. Schmidt Pain management per Dr. Naranjo. Again requested the patient increase activity. And be out of bed. Discussed with the nurse
[2019-10-25] MEDS: VANCOMYCIN 1,250 MG in SODIUM CHLORIDE 0.9% 250 ML IVPB SCH ×4 (00:13→23:43)
[2019-10-25] MEDS: ACETAMINOPHEN TAB 500 MG TAB PO SCH ×5 (00:17→23:43)
[2019-10-25 06:35] LABS: Glucose,Whole Blood 323 mg/dL (75-99)
[2019-10-25] MEDS: INSULIN ASPART (NovoLOG) 100 UNIT/ML VIAL SQ SCH ×4 (06:38→20:21)
[2019-10-25] MEDS: SODIUM CHLORIDE 0.9% 1,000 ML IV SCH ×4 (06:39→18:10)
[2019-10-25] MEDS ORDERED: VANCOMYCIN TROUGH DUE 1 EACH MISC MISCELLANE ONE (07:00)
[2019-10-25] MEDS: MORPHINE PCA 50 MG/50 ML BAG IV PRN (07:28)
[2019-10-25] MEDS: NAPROXEN 250 MG TAB PO SCH ×2 (09:23→20:21)
[2019-10-25] MEDS: NICOTINE 21MG/24HR PATCH TRANSDERM SCH (09:23)
[2019-10-25] MEDS: DULoxetine HCL 60 MG CAPSULE.DR PO SCH (09:24)
[2019-10-25] MEDS: GABAPENTIN 300 MG CAP PO SCH ×3 (09:24→20:21)
[2019-10-25] MEDS: ENOXAPARIN 40 MG/0.4 ML SYRINGE SQ SCH (09:25)
--- NOTE | 2019-10-25 11:50 | P.PN ---
Subjective Progress Note Date: 10/25/19 CHIEF COMPLAINT: Abdominal wall abscess HISTORY OF PRESENT ILLNESS: Abdominal wall abscess status post I&D on 10/22/2019. Patient's pain is better controlled with the morphine MORTUARY OPERATIONS MANAGER pump that was started by pain management. Wound culture growing MRSA. Patient on vancomycin per ID. She is afebrile. White count 7.8 blood sugar 323 PHYSICAL EXAM: VITAL SIGNS: Reviewed. GENERAL: Well-developed in no acute distress. HEENT: No sclera icterus. Extraocular movements grossly intact. Moist buccal mucosa. Head is atraumatic, normocephalic. ABDOMEN: Soft. Nondistended. Patient has decreased induration across her abdominal wall. NEUROLOGIC: Alert and oriented. Cranial nerves II through XII grossly intact. ASSESSMENT: 1. Abdominal wall abscess and cellulitis. Status post I&D on 10/22/2019 2. Uncontrolled hyperglycemia. Diabetes mellitus type 1 on insulin pump. Management per medicine PLAN: Continue IV antibiotics per infectious disease Continue pain management per pain service No further surgical intervention Recommend to continue IV antibiotics for 1 more day. Patient not quite ready for discharge. Physician Hospice Music Therapist note has been reviewed by physician. Signing provider agrees with the documented findings, assessment, and plan of care. Objective - Vital Signs Vital signs: Vital Signs Temp 98.2 F 10/25/19 00:20 Pulse 68 10/25/19 09:31 Resp 16 10/25/19 09:31 BP 119/80 10/25/19 09:31 Pulse Ox 99 10/25/19 09:31 Intake & Output 10/24/19 10/25/19 10/25/19 18:59 06:59 18:59 Intake Total 750 Balance 750 Weight 53.07 kg Intake: Oral 750 Other: Voiding Method Toilet # Voids 3 1 1 - Labs CBC & Chem 7: 10/24/19 05:21 10/24/19 05:21 Labs: Abnormal Lab Results - Last 24 Hours (Table) 10/24/19 10/24/19 10/24/19 Range/Units 11:56 17:36 21:16 POC Glucose (mg/dL) 365 H 220 H 231 H (75-99) mg/dL 10/25/19 Range/Units 06:30 POC Glucose (mg/dL) 323 H (75-99) mg/dL Microbiology - Last 24 Hours (Table) 10/20/19 22:11 Blood Culture - Preliminary Blood No Growth after 96 hours 10/22/19 15:15 Gram Stain - Final Abdomen Wound Culture - Final Methicillin resist S. aureus
[2019-10-25 12:02] LABS: Glucose,Whole Blood 167 mg/dL (75-99)
--- NOTE | 2019-10-25 14:26 | PN ---
PROGRESS NOTE DATE OF SERVICE: 10/25/2019 REASON FOR FOLLOWUP: The abdominal wall abscess and cellulitis and MRSA. INTERVAL HISTORY: Patient is currently afebrile, patient is breathing comfortably. The patient denies having any chest pain. No shortness of breath or cough. Overall pain and discomfort to the lower abdominal area has improved. No nausea, no vomiting. No diarrhea. PHYSICAL EXAMINATION: Blood pressure 115/77, pulse of 72, temperature 98.2, she is 93% on room air. General description is a middle-aged female, lying in bed in no distress. RESPIRATORY SYSTEM: Unlabored breathing, clear to auscultation. ABDOMEN: Lower abdominal wall area of swelling and redness has improved. Minimal area of induration. No purulent drainage on the dressing. LABS: Vanco trough is 18.9, wound has been finalized with MRSA. DIAGNOSTIC IMPRESSION AND PLAN: Patient with MRSA abdominal wall abscess, status post bedside drainage. Plan at this time to continue with vancomycin, finish therapy with oral Bactrim DS one twice a day for about 10 days. Local packing which showed Aquacel silver packing daily. Questions and concerns were answered. MMODL / IJN: [id number] /
[2019-10-25 16:50] LABS: Glucose,Whole Blood 232 mg/dL (75-99)
[2019-10-25] MEDS ORDERED: LACTULOSE 20 GM/30 ML CUP PO ONE (18:05)
[2019-10-25] MEDS: ALPRAZolam 0.25 MG TAB PO PRN (18:38)
[2019-10-25 20:08] LABS: Glucose,Whole Blood 157 mg/dL (75-99)
--- NOTE | 2019-10-25 20:19 | P.PN ---
Progress Note - Text Progress Note Date: 10/25/19 Chief Complaint: Abdominal wall cellulitis History of presenting complaint: This is a 39-year-old patient of Dr. Analia Grier. Patient is a type I diabetic diagnosed one year ago. Has a insulin pump. It was recorded. Patient has been using short-acting insulin for some time. Only Humalog. No long- acting insulin. Patient does use a razor to shave around her pubic hair. Tuesday morning she noticed a pimple just above the pubic line and an epidural local compress on it.. It progressed to spread in the lower abdomen become more painful. It no fevers. No reported chills. Normally patient Accu-Cheks run in the 250s. She was started in IV vancomycin and Zosyn in the ER. And on IV Dilaudid. Patient is asking for IV Dilaudid pain medicine to be increased. Patient is on Arnold and Neurontin for herniated disc of the spine. Patient was treated for cellulitis. And folliculitis. Was taken to the [facility] by Dr. Collins. No abscess was found. Patient does follow with Dr. Zaragoza for pain medications. Patient is requiring up to 2 mg of Dilaudid every 3 hours. Pain management he was consulted. They put her on morphine pump. Patient eating all her meals. As sugars have been running high. Patient also offered community educator. Declined the same. She was to follow with a known community educator. Today-abdominal redness coming down. Slight drainage. Eating well. On to the laxative for constipation. Has been out of bed to the bathroom. No fever no chills. Consultation: Dr. Sewell from ID Dr. Collins from general surgery Dr. Naranjo from pain management Review of systems: Was done for constitutional, cardiovascular, GI, pulmonary. relevant finding as above Active Medications Acetaminophen (Tylenol Tab) 1,000 mg PO Q6HR [facility] Last Admin: 10/25/19 17:55 Dose: 1,000 mg Documented by: Alprazolam (Xanax) 0.25 mg PO Q8H PRN PRN Reason: Anxiety Last Admin: 10/25/19 18:38 Dose: 0.25 mg Documented by: Duloxetine HCl (Cymbalta) 60 mg PO DAILY [facility] Last Admin: 10/25/19 09:24 Dose: 60 mg Documented by: Enoxaparin Sodium (Lovenox) 40 mg SQ DAILY [facility] Last Admin: 10/25/19 09:25 Dose: 40 mg Documented by: Gabapentin (Neurontin) 600 mg PO TID [facility] Last Admin: 10/25/19 16:01 Dose: 600 mg Documented by: Sodium Chloride (Saline 0.9%) 1,000 mls @ 130 mls/hr IV .Q7H42M [facility] Last Admin: 10/25/19 18:10 Dose: 130 mls/hr Documented by: Vancomycin HCl 1,250 mg/ (Sodium Chloride) 250 mls @ 125 mls/hr IVPB Q8HR [facility] Last Admin: 10/25/19 15:56 Dose: 125 mls/hr Documented by: Insulin Aspart (Novolog) 0 unit SQ ACHS [facility]; Protocol Last Admin: 10/25/19 16:55 Dose: 3 unit Documented by: Morphine Sulfate (Morphine Fractionation Supervisor) 50 mg IV PER PROTOCOL PRN; Protocol PRN Reason: Pain Control Last Admin: 10/25/19 07:28 Dose: 50 mg Documented by: Naloxone HCl (Narcan) 0.2 mg IV Q2M PRN PRN Reason: Opioid Reversal Naloxone HCl (Narcan) 0.2 mg IV Q2M PRN PRN Reason: Opioid Reversal Naproxen (Naprosyn) 500 mg PO BID [facility] Last Admin: 10/25/19 09:23 Dose: 500 mg Documented by: Nicotine (Habitrol 21mg/24hr Patch) 1 patch TRANSDERM DAILY [facility] Last Admin: 10/25/19 09:23 Dose: 1 patch Documented by: Nicotine Polacrilex (Nicorette Gum) 2 mg BUCCAL Q2HR PRN PRN Reason: Nicotine Cravings Ondansetron HCl (Zofran) 4 mg IVP Q8HR PRN PRN Reason: Nausea And Vomiting Last Admin: 10/22/19 16:20 Dose: 4 mg Documented by: Physical examination: VITAL SIGNS: 99.2, 72, 19, 1507, 96% room air GENERAL: Sitting up in bed, comfortable EYES: Pupils equal. Conjunctiva normal. HEENT: External appearance of nose and ears normal, oral cavity grossly normal. NECK: JVD not raised; masses not palpable. HEART: First and second heart sounds are normal; no edema. LUNGS: Respiratory rate normal; clear to auscultation. ABDOMEN: Soft, superficial wound of the surgery, with less surrounding redness, liver spleen not palpable, PSYCH: Alert and oriented x3; mood and affect anxious INVESTIGATIONS, reviewed in the clinical context: White count 7.8 hemoglobin 9.8 potassium 3.7 creatinine 0.47 pro-calcitonin 0.05 Accu-Cheks 221, 365, 220 Previous testing White count 12.6 hemoglobin 13.4 repeat 10.7 potassium 3.9 creatinine 0.5 lactic acid 5.2 CRP 31.6 Accu-Cheks 269, 274 HbA1c 11.1 Wound culture-MRSA Assessment: -Acute lower abdominal wall cellulitis precipitated by acute folliculitis likely from using a razor. Status post I&D.-Currently improving. Pro-calcitonin is normal. Normal white count. Secondary to MRSA -Diabetes mellitus type 1 on insulin pump recalled, uncontrolled with hyperglycemia, -Macrocytic anemia cause unknown-check B12 and TSH -Lactic acidosis possible sepsis from cellulitis-improved -Chronic low back pain from herniated disc, on chronic pain medications as per -Anxiety depression otherwise specified Plan: Continue current medication transplant. Discussed with ARCADE GAME TECHNICIAN with Dr. Collins. He would like her to by mouth for another day. Continue with current antibiotics. We will be discharging oral Bactrim.
[2019-10-26] MEDS: ALPRAZolam 0.25 MG TAB PO PRN (02:09)
[2019-10-26 04:43] VITALS: TEMP 98.1
[2019-10-26] MEDS: SODIUM CHLORIDE 0.9% 1,000 ML IV SCH (04:43)
[2019-10-26 06:38] LABS: Glucose,Whole Blood 253 mg/dL (75-99)
[2019-10-26] MEDS: INSULIN ASPART (NovoLOG) 100 UNIT/ML VIAL SQ SCH ×2 (06:42→12:32)
[2019-10-26] MEDS: ACETAMINOPHEN TAB 500 MG TAB PO SCH ×2 (06:43→11:45)
[2019-10-26] MEDS: MORPHINE PCA 50 MG/50 ML BAG IV PRN (07:22)
[2019-10-26] MEDS: VANCOMYCIN 1,250 MG in SODIUM CHLORIDE 0.9% 250 ML IVPB SCH (07:23)
[2019-10-26] MEDS: GABAPENTIN 300 MG CAP PO SCH (08:10)
[2019-10-26] MEDS: NAPROXEN 250 MG TAB PO SCH (08:10)
[2019-10-26] MEDS: ENOXAPARIN 40 MG/0.4 ML SYRINGE SQ SCH (08:11)
[2019-10-26] MEDS: NICOTINE 21MG/24HR PATCH TRANSDERM SCH (08:11)
[2019-10-26] MEDS: DULoxetine HCL 60 MG CAPSULE.DR PO SCH (08:11)
[2019-10-26 08:23] VITALS: BP 105/67; PULSE 80; RESP 16
[2019-10-26 12:22] LABS: Glucose,Whole Blood 306 mg/dL (75-99)
--- NOTE | 2019-10-26 12:33 | P.PN ---
Subjective Progress Note Date: 10/26/19 CHIEF COMPLAINT: Abdominal wall abscess HISTORY OF PRESENT ILLNESS: Abdominal wall abscess status post I&D on 10/22/2019. Patient's pain is better controlled with the morphine WARBLE SAW OPERATOR pump that was started by pain management. Wound culture growing MRSA. Patient on vancomycin per ID. She is afebrile. patient did have a bowel movement. PHYSICAL EXAM: VITAL SIGNS: Reviewed. GENERAL: Well-developed in no acute distress. HEENT: No sclera icterus. Extraocular movements grossly intact. Moist buccal mucosa. Head is atraumatic, normocephalic. ABDOMEN: Soft. Nondistended. Patient has decreased induration across her abdominal wall. NEUROLOGIC: Alert and oriented. Cranial nerves II through XII grossly intact. ASSESSMENT: 1. Abdominal wall abscess and cellulitis. Status post I&D on 10/22/2019. Wound culture growing MRSA 2. Uncontrolled hyperglycemia. Diabetes mellitus type 1. Management per medicine PLAN: infectious disease recommending Bactrim for 10 days at discharge Wound care per infectious disease Pain medications per pain management service patient is stable for discharge from surgical standpoint Patient to follow-up with Dr. Collins in the office in one week Physician Reading Teacher note has been reviewed by physician. Signing provider agrees with the documented findings, assessment, and plan of care. Objective - Vital Signs Vital signs: Vital Signs Temp 98.1 F 10/26/19 08:23 Pulse 80 10/26/19 08:23 Resp 16 10/26/19 08:23 BP 105/67 10/26/19 08:23 Pulse Ox 97 10/26/19 08:23 Intake & Output 10/25/19 10/26/19 10/26/19 18:59 06:59 18:59 Intake Total 600 820 240 Balance 600 820 240 Intake: Oral 600 820 240 Other: Voiding Method Toilet # Voids 1 3 1 # Emeses 1 - Labs CBC & Chem 7: 10/24/19 05:21 10/24/19 05:21 Labs: Abnormal Lab Results - Last 24 Hours (Table) 10/25/19 10/25/19 10/26/19 Range/Units 16:47 20:07 06:37 POC Glucose (mg/dL) 232 H 157 H 253 H (75-99) mg/dL 10/26/19 Range/Units 12:17 POC Glucose (mg/dL) 306 H (75-99) mg/dL Microbiology - Last 24 Hours (Table) 10/20/19 22:11 Blood Culture - Preliminary Blood No Growth after 120 hours
--- NOTE | 2019-10-26 14:00 | PN ---
PROGRESS NOTE DATE OF SERVICE: 10/26/2019 REASON FOR FOLLOWUP: An abdominal wall abscess and cellulitis MRSA. INTERVAL HISTORY: The patient is currently afebrile, patient is breathing comfortably. The patient denies having any chest pain or shortness of breath or cough. No nausea, no vomiting. Abdominal pain has improved, no diarrhea. PHYSICAL EXAMINATION: Blood pressure 105/67, pulse of 80, temperature 98.1, she is 97% on room air. General description is a middle-aged female, lying in bed in no distress. RESPIRATORY SYSTEM: Unlabored breathing, clear to auscultation anteriorly. HEART: S1, S2. Regular rate and rhythm. ABDOMEN: Soft. Normal induration has decreased, no purulent drainage, redness has improved. LABS: Wound culture with MRSA. Creatinine is normal. IMPRESSION/PLAN: Abdominal wall abscess and cellulitis, status post surgical drainage. Overall, clinical improvement. She will finish therapy with oral Bactrim DS one twice a day. Local wound care with Aquacel packing. [facility]. Continue local wound care. Questions were answered. MMODL / IJN: [id number] /
--- NOTE | 2019-10-26 23:43 | P.DS ---
Providers Date of admission: 10/22/19 12:34 Expected date of discharge: 10/26/19 Attending physician: Tony Farias Consults: 10/21/19 12:17 Consult Physician Routine Consulting Provider: Sandeep Thompson Consult Reason/Comments: abd wall abscess Do you want consulting provider notified?: Yes 10/22/19 14:36 Consult Physician Routine Consulting Provider: Edward Collins Consult Reason/Comments: abd wall abscess Do you want consulting provider notified?: Yes Primary care physician: Ancelmo Grier [facility] Course: Chief Complaint: Abdominal wall cellulitis History of presenting complaint: This is a 39-year-old patient of Dr. Analia Grier. Patient is a type I diabetic diagnosed one year ago. Has a insulin pump. It was recorded. Patient has been using short-acting insulin for some time. Only Humalog. No long- acting insulin. Patient does use a razor to shave around her pubic hair. Tuesday morning she noticed a pimple just above the pubic line and an epidural local compress on it.. It progressed to spread in the lower abdomen become more painful. It no fevers. No reported chills. Normally patient Accu-Cheks run in the 250s. She was started in IV vancomycin and Zosyn in the ER. And on IV Dilaudid. Patient is asking for IV Dilaudid pain medicine to be increased. Patient is on Chelsea and Neurontin for herniated disc of the spine. Patient was treated for cellulitis. And folliculitis. Was taken to the [facility] by Dr. Collins. No abscess was found. Patient does follow with Dr. Zaragoza for pain medications. Patient is requiring up to 2 mg of Dilaudid every 3 hours. Pain management consulted. They put her on morphine pump. Patient eating all her meals. As sugars have been running high. Patient also offered laboratory manager. Declined the same. She was to follow with a known laboratory manager. Today-abdominal redness much improved. Dressing changes as per Dr. Collins and Dr. thompson. Patient is up and about. Took a shower.home on Bactrim Consultation: Dr. Thompson from ID Dr. Collins from general surgery Dr. Naranjo from pain management Physical examination: VITAL SIGNS: 98.1, 18, 16, 105/67, 97% room air GENERAL: Sitting up in bed, comfortable EYES: Pupils equal. Conjunctiva normal. HEENT: External appearance of nose and ears normal, oral cavity grossly normal. NECK: JVD not raised; masses not palpable. HEART: First and second heart sounds are normal; no edema. LUNGS: Respiratory rate normal; clear to auscultation. ABDOMEN: Soft, superficial wound of the surgery, with less surrounding redness, liver spleen not palpable, PSYCH: Alert and oriented x3; mood and affect anxious INVESTIGATIONS, reviewed in the clinical context: [id number], [id number] Previous testing White count 12.6 hemoglobin 13.4 repeat 10.7 potassium 3.9 creatinine 0.5 lactic acid 5.2 CRP 31.6 Accu-Cheks 269, 274 HbA1c 11.1 Wound culture-MRSA pro-calcitonin 0.05 COVID 19 PCR negative Assessment: -Acute lower abdominal wall cellulitis precipitated by acute folliculitis likely from using a razor. Status post I&D.-Currently improving. Pro-calcitonin is normal. Normal white count. Secondary to MRSA -Diabetes mellitus type 1 on insulin pump recalled, uncontrolled with hyperglycemia, only takes short-acting sent home. -Macrocytic anemia -further workup as outpatient -Lactic acidosis possible sepsis from cellulitis-improved -Chronic low back pain from herniated disc, on chronic pain medications as per -Anxiety depression otherwise specified disposition: Home Patient Condition at Discharge: Stable Plan - Discharge Summary Discharge Rx Participant: No New Discharge Prescriptions: New Sulfamethox-Tmp 800-160Mg [Bactrim DS 800-160 mg] 1 tab PO Q12HR #20 tab oxyCODONE HCL [oxyCODONE HCL (IR)] 10 mg PO Q6H PRN #12 tab PRN Reason: Pain Nicotine 21Mg/24Hr Patch [Habitrol] 1 patch TRANSDERM DAILY #14 patch Continue HYDROcodone/APAP 5-325MG [Chelsea 5-325] 1 tab PO TID Gabapentin 600 mg PO TID Naproxen 500 mg PO TID INSULIN ASPART (NovoLOG) [NovoLOG (formulary)] See Protocol SQ ACHS DULoxetine HCL [Cymbalta] 60 mg PO DAILY tiZANidine HCL [Zanaflex] 4 mg PO TID PRN PRN Reason: MUSCLE SPASMS Discharge Medication List DULoxetine HCL [Cymbalta] 60 mg PO DAILY 10/20/19 [History] Gabapentin 600 mg PO TID 10/20/19 [History] HYDROcodone/APAP 5-325MG [Chelsea 5-325] 1 tab PO TID 10/20/19 [History] INSULIN ASPART (NovoLOG) [NovoLOG (formulary)] See Protocol SQ ACHS 10/20/19 [History] Naproxen 500 mg PO TID 10/20/19 [History] tiZANidine HCL [Zanaflex] 4 mg PO TID PRN 10/22/19 [History] Sulfamethox-Tmp 800-160Mg [Bactrim DS 800-160 mg] 1 tab PO Q12HR #20 tab 10/23/19 [Rx] oxyCODONE HCL [oxyCODONE HCL (IR)] 10 mg PO Q6H PRN #12 tab 10/25/19 [Rx] Nicotine 21Mg/24Hr Patch [Habitrol] 1 patch TRANSDERM DAILY #14 patch 10/26/19 [Rx] Follow up Appointment(s)/Referral(s): Ancelmo Grier MD [Primary Care Provider] - 10/29/19 11:45 am (Nurse Practitioner Tasha) [facility], [NON-STAFF] - Arpan Bridges PAC [REFERRING] - 10/30/19 8:15 am Edward Collins MD [STAFF PHYSICIAN] - 11/01/19 2:50 pm Patient Instructions/Handouts: Chronic Pain (DC), Pain Management After Surgery (GEN), Narcotic Safety (GEN), Opioid Safety (DC), Non-pharmacological Pain Management Therapies for Adults (GEN) Activity/Diet/Wound Care/Special Instructions: No driving while taking pain medication. [facility] [id number] [place] [address] You have an appointment Sunday, October 27, 2019 at 11:45 am. wound care--Aquacel silver packing of the wound daily, follow-up in the wound care center next week with Dr. Thompson for local wound care, call [phone] to make an appointment. [facility] has your information, they will call you on Tuesday to set up your appointment, you may call them also. Drink plenty of fluids. Good handwashing by all family members. Do not share items. Shower daily. You should keep your dressing clean and dry. You may change the outer dressing as needed and [facility] Nurse will do your daily dressing change. [facility] ([phone]) to assist with wound care, packing wound daily with approx 3 inches of dry Aquacell silver rope, cover with 4 x 4 fluffs and folded ABD pad. Cavilon skin prep can be applied every other day to protect skin from wound drainage and tape. Discharge Disposition: HOME WITH HOME HEALTH SERVICES
== END 2019-10-26 13:10 | disposition home health service (06) | DRG 854 ==
LOC: EC 19:58 → 4SSUR 22:48 → OBSVTOIN 10-22 12:34 → 6PED 10-22 17:00
PROVIDERS: ADMIT Hospitalist; ATTEND Hospitalist
PROC: 0W9F0ZZ Drainage of Abdominal Wall, Open Approach (ICD-10-PCS; principal; 2019-10-22)
DX: A41.9 Sepsis, unspecified organism (principal); L02.211 Cutaneous abscess of abdominal wall; L03.311 Cellulitis of abdominal wall; E87.2 Acidosis; F41.9 Anxiety disorder, unspecified; F32.9 Major depressive disorder, single episode, unspecified; E10.65 Type 1 diabetes mellitus with hyperglycemia; D53.9 Nutritional anemia, unspecified; G89.29 Other chronic pain; B95.62 Methicillin resistant Staphylococcus aureus infection as the cause of diseases classified elsewhere; K59.00 Constipation, unspecified; L73.9 Follicular disorder, unspecified; M51.27 Other intervertebral disc displacement, lumbosacral region; Z96.41 Presence of insulin pump (external) (internal); Z11.59 Encounter for screening for other viral diseases; Z79.899 Other long term (current) drug therapy; Z79.4 Long term (current) use of insulin; Z88.1 Allergy status to other antibiotic agents; Z86.14 Personal history of Methicillin resistant Staphylococcus aureus infection; Z90.710 Acquired absence of both cervix and uterus; Z90.89 Acquired absence of other organs; Z87.891 Personal history of nicotine dependence
CPT/HCPCS: 36415; 74177; 80048; 80053; 80202; 82565; 83036; 83605; 84145; 85025; 86140; 87040; 87070; 87077; 87186; 87205; 96361; 96365; 96366; 96368; 96375; 96376; 99285